=== PATIENT | female | born 1985 | race Caucasian/White ===

== ENCOUNTER → 2017-02-08 | Outpatient (CLI) | payer OTHER ==
[~2017-02-08] MED LIST: ACET500T57 PO; ASPI1TAB PO; ASPI1TAB83 PO; ATOR10TA88 PO; BCTROWC EXT; BUPR100T8 PO; CEPH500C PO; CYCL5TAB PO; DICL50TA3 PO; DICY10CA12 PO; DOXE10CA PO; ESOM20CA PO; ETON1IMP2 INTRAD; FLUO10CA48 PO; FLUO20CA35 PO; FLUO40CA8 PO; GABA-113 PO; GABA600T PO; INDO-22 PO; LEVO50TA PO; METO-157 PO; MIRT15TA2 PO; MIRT45TA3 PO; ONDA4TAB46 PO; ONDA4TAB7 SL; PRAZ2CAP PO; PRT/20 PO; QUET1TAB32 PO; SULF800T23 PO; SUMA20SP; TOPI200T20 PO; TOPI50TA24 PO; TRAM-10 PO; VNTHFA/IN INH
[2017-02-08 14:54] LABS: PREG INTERNAL NEGATIVE QC NEG CLEAR BACKGROUND; PREG INTERNAL POSITIVE QC POS CONTROL LINE
== END | disposition home or self-care (01) ==
LOC: C.LAB1850 13:54
PROVIDERS: ATTEND Physician Assistant
DX: Z30.017 Encounter for initial prescription of implantable subdermal contraceptive (principal)

== ENCOUNTER 2017-03-15 21:38 | Emergency (ER) | payer OTHER ==
[~2017-03-15] VITALS: Ht 154.9 cm; Wt 91.7 kg
[~2017-03-15 21:38] MED LIST changes: -ASPI1TAB PO; -ATOR10TA88 PO; -BCTROWC EXT; -CEPH500C PO; -CYCL5TAB PO; -DICY10CA12 PO; -ETON1IMP2 INTRAD; -FLUO10CA48 PO; -FLUO40CA8 PO; -GABA600T PO; -INDO-22 PO; -LEVO50TA PO; -MIRT45TA3 PO; -ONDA4TAB46 PO; -PRAZ2CAP PO; -PRT/20 PO; -QUET1TAB32 PO; -SULF800T23 PO; -TOPI200T20 PO; -VNTHFA/IN INH
[2017-03-15 21:47] VITALS: TEMP 36.4; Ht 154.9 cm; Wt 91.7 kg
[2017-03-15] MEDS ORDERED: KETOROLAC TROMETHAMINE 30 MG/ML VIAL IV STA (23:39)
[2017-03-15] MEDS ORDERED: ACETAMINOPHEN IV 100 ML IV ONE (23:45)
[2017-03-15] MEDS ORDERED: SODIUM CHLORIDE 0.9% 1000ML 1,000 ML IV ONE (23:45)
[2017-03-15 23:58] LABS: HEMATOCRIT 38.1 % (37-47); MEAN CELL VOLUME 92.7 fL (80-100); MEAN CORPUSCULAR HEMOGLOBIN 32.1 pg (25-34); MEAN CORPUSCULAR HGB CONC 34.6 g/dl (32-36); MEAN PLATELET VOLUME 8.9 fL (7.4-10.4); PLATELET COUNT 286 K/uL (130-400); RED BLOOD COUNT 4.11 M/uL (4.2-5.4); WHITE BLOOD COUNT 12.14 K/uL (4.8-10.8)
[2017-03-16 00:16] LABS: BASO % 0.2 %; BASO ABS # 0.03 K/uL (0-0.2); COMPLETE YES; EOS % 1.3 %; IG% 0.4 %; LYMPH % 29.5 %; LYMPH ABS # 3.58 K/uL (1.2-3.4); MONO % 6.7 %; NEUT % 61.9 %
[2017-03-16 00:23] LABS: BUN/CREATININE RATIO 14.8 (10-20); CALCIUM 8.8 mg/dl (8.5-10.1); CREATININE 0.78 mg/dl (0.60-1.20); POTASSIUM 3.3 mmol/L (3.5-5.1)
[2017-03-16 00:26] LABS: ALB/GLOB RATIO 0.9 (0.9-2)
[2017-03-16] MEDS ORDERED: PRAZ2CAP PO (00:26)
[2017-03-16 00:27] LABS: URINE APPEARANCE CLEAR (CLEAR); URINE BILIRUBIN NEG (NEG); URINE COLOR RED; URINE NITRITE NEG (NEG); URINE SPECIFIC GRAVITY 1.004 (1.000-1.030); UROBILINOGEN NEG (NEG); ZZUR CULT IF INDIC CLEAN CATCH NO
[2017-03-16] MEDS ORDERED: VNTHFA/IN INH (00:31)
[2017-03-16 00:36] LABS: MANUAL MICROSCOPIC REQUIRED? YES; REVIEW REQ? NO
[2017-03-16 00:46] LABS: URINE BACTERIA 1+ (NEG)
[2017-03-16] MEDS ORDERED: SULF800T23 PO (01:36)
[2017-03-16 01:44] VITALS: BP 114/69; PULSE 57; O2SAT 97
[2017-03-16] MEDS ORDERED: SEPTRA DS HOME PACK 1 EA VIAL PO ONE (01:45)
--- NOTE | 2017-03-16 01:55 | EMERGENCY ROOM VISIT NOTE ---
History First contact with patient: 23:32 Chief Complaint: ABDOMINAL PAIN Stated Complaint: ABDOMINAL PAIN Nursing Triage Summary: Patient ambulatory to triage, states "I have a lot of belly pain. I don't know what's going on. It's really bothering me. It started in the afternoon while I was at home relaxing." History of Present Illness The patient is a 32 year old female who presents to the Emergency Room with complaints of worsening mid to low abdominal pain over the past 12 hours. The patient does not have injury or trauma. Her symptoms do not appear to improve or worsen with food. They started to become noticeable as the patient was relaxing at home today. She has not had fever or chills. She is not taking anything [id number] for her symptoms. The patient has Implanon and denies chance of . She does not get a menstrual. Because of this. She is without vaginal complaints. The patient states her discomfort is a dull 5/10 without radiation. Review of Systems More than 10 systems were reviewed and otherwise negative with the exception of history of present illness. Past Medical/Surgical History Medical Problems: (1) Carpal tunnel syndrome (2) Chest pain (3) Chest pain (4) Chest pain (5) Chest pain (6) Diab Vilma Wo Compl, Type Ii Or Unspec Type, Not Uncntrld (7) Hypothyroidism (8) Migraine Unspecified W/O Intractable Migraine Family History Diabetes mellitus Social History Smoking Status: Never Smoker Alcohol Use: none Marital Status: single Housing Status: lives with family Occupation Status: employed Current/Historical Medications Scheduled Aspirin (Aspirin), 1 TAB PO DAILY Atorvastatin (Lipitor), 10 MG PO DAILY Bupropion (Wellbutrin Sr), 100 MG PO BID Doxepin (Sinequan), 10 MG PO DAILY Etonogestrel (Nexplanon), 68 MG EPI CONTINOUS Fluoxetine (Prozac), 40 MG PO DAILY Gabapentin (Neurontin), 600 MG PO TID Indomethacin (Indocin), 25 MG PO DAILY Levothyroxine Sodium (Synthroid), 50 MCG PO DAILY Metoclopramide (Reglan), 5 MG PO TID Mirtazapine Soltab (Remeron Soltab), 15 MG PO HS Pantoprazole (Protonix), 20 MG PO QAM Prazosin Hcl (Minipress), 2 MG PO HS Sulfa/Trimethoprim (Bactrim Ds 800MG/160MG), 1 TAB PO BID Topiramate (Topamax), 200 MG PO AMHS Scheduled PRN Acetaminophen (Acetaminophen), 1,000 MG PO Q6H PRN for Pain Albuterol Hfa (Ventolin Hfa), 2 PUFFS INH Q6H PRN for SOB/Wheezing Cyclobenzaprine Hcl (Flexeril), 5 MG PO TID PRN for SPASMS Dicyclomine Hcl (Dicyclomine Hcl), 10 MG PO QID PRN for CRAMPING Ondansetron Hcl (Zofran), 4 MG SL Q6H PRN for Nausea Tramadol (Ultram), 50 MG PO Q6H PRN for Pain Allergies Coded Allergies: Morphine (Verified Adverse Reaction, Unknown, dizzy and feels like fainting, 03/15/17) Physical Exam Vital Signs Date Time Temp Pulse Resp B/P Pulse Ox O2 Delivery O2 Flow Rate FiO2 03/16/17 01:44 57 18 114/69 97 03/15/17 23:56 67 18 114/88 99 Room Air 03/15/17 21:47 36.4 75 18 137/94 97 Room Air Pain Rating (0-10): 0 Physical Exam VITALS: Vitals are noted on the nurse's note and reviewed by myself. Vital signs stable. GENERAL: Well-developed, well-nourished, white female, who is in no acute distress and resting comfortably. Patient is cooperative with the examination. HEAD: Normocephalic atraumatic. EARS: External ear normal. External auditory canals clear, tympanic membranes pearly berry without erythema or effusion bilaterally. EYES: Pupils equal round and reactive to light and accommodation. Conjunctivae without injection, sclerae without icterus. Extraocular movements intact. NOSE: Patent, turbinates without inflammation or discharge. MOUTH: Mucous membranes moist. Tonsils are not enlarged. Pharynx without erythema, blood, or exudate. Uvula midline. Airway patent. NECK: Supple without nuchal rigidity. No lymphadenopathy. No thyromegaly. Cervical spine is nontender. HEART: Regular rate and rhythm without murmurs gallops or rubs. LUNGS: Clear to auscultation bilaterally without wheezes, rales or rhonchi. No retractions or accessory muscle use. ABDOMEN: Positive normal bowel sounds x 4. Soft, nontender, without masses or organomegaly. No guarding or rebound tenderness. No CVA tenderness MUSCULOSKELETAL: No muscle atrophy, erythema, or edema noted. Full range of motion without joint tenderness in all extremities. Medical Decision & Procedures ER Provider Diagnostic Interpretation: Preliminary Findings Only See Final Report For Complete Findings CT ABDOMEN & PELVIS: Comparison with CT abdomen pelvis dated 04/19/14. No bowel obstruction. No appendicitis or other inflammatory changes of bowel. Pancreas and gallbladder are grossly unremarkable. No renal calculi. No hydronephrosis. No free air or free fluid. No other acute disease. Laboratory Results 03/15/17 23:45 Red Blood Count 4.11, Mean Corpuscular Volume 92.7, Mean Corpuscular Hemoglobin 32.1, Mean Corpuscular Hemoglobin Concent 34.6, Mean Platelet Volume 8.9, Neutrophils (%) (Auto) 61.9, Lymphocytes (%) (Auto) 29.5, Monocytes (%) (Auto) 6.7, Eosinophils (%) (Auto) 1.3, Basophils (%) (Auto) 0.2, Neutrophils # (Auto) 7.51, Lymphocytes # (Auto) 3.58, Monocytes # (Auto) 0.81, Eosinophils # (Auto) 0.16, Basophils # (Auto) 0.03 03/15/17 23:45 Test 03/15/17 23:40 03/15/17 23:45 Urine Color RED Urine Appearance CLEAR (CLEAR) Urine pH 7.0 (4.5-7.5) Urine Specific [place] 1.004 (1.000-1.030) Urine Protein NEG (NEG) Urine Glucose (UA) NEG (NEG) Urine Ketones NEG (NEG) Urine Occult Blood 3+ (NEG) Urine Nitrite NEG (NEG) Urine Bilirubin NEG (NEG) Urine Urobilinogen NEG (NEG) Urine Leukocyte Esterase SMALL (NEG) Urine WBC (Auto) /hpf (0-5) Urine RBC (Auto) /hpf (0-4) Urine Hyaline Casts (Auto) /lpf (0-5) Urine Epithelial Cells (Auto) /lpf (0-5) Urine Bacteria (Auto) (NEG) Urine RBC 5-10 /hpf (0-4) Urine WBC 10-30 /hpf (0-5) Urine Epithelial Cells 10-20 /lpf (0-5) Urine Bacteria 1+ (NEG) Urine Test NEG (NEG) White Blood Count 12.14 K/uL (4.8-10.8) Red Blood Count 4.11 M/uL (4.2-5.4) Hemoglobin 13.2 g/dL (12.0-16.0) Hematocrit 38.1 % (37-47) Mean Corpuscular Volume 92.7 fL (80-100) Mean Corpuscular Hemoglobin 32.1 pg (25-34) Mean Corpuscular Hemoglobin Concent 34.6 g/dl (32-36) Platelet Count 286 K/uL (130-400) Mean Platelet Volume 8.9 fL (7.4-10.4) Neutrophils (%) (Auto) 61.9 % Lymphocytes (%) (Auto) 29.5 % Monocytes (%) (Auto) 6.7 % Eosinophils (%) (Auto) 1.3 % Basophils (%) (Auto) 0.2 % Neutrophils # (Auto) 7.51 K/uL (1.4-6.5) Lymphocytes # (Auto) 3.58 K/uL (1.2-3.4) Monocytes # (Auto) 0.81 K/uL (0.11-0.59) Eosinophils # (Auto) 0.16 K/uL (0-0.5) Basophils # (Auto) 0.03 K/uL (0-0.2) RDW Standard Deviation 43.6 fL (36.4-46.3) RDW Coefficient of Variation 12.9 % (11.5-14.5) Immature Granulocyte % (Auto) 0.4 % Immature Granulocyte # (Auto) 0.05 K/uL (0.00-0.02) Anion Gap 9.0 mmol/L (3-11) Est Creatinine Clear Calc Drug Dose 105.8 ml/min Estimated GFR () 115.8 Estimated GFR (Non- 99.9 BUN/Creatinine Ratio 14.8 (10-20) Calcium Level 8.8 mg/dl (8.5-10.1) Total Bilirubin 0.2 mg/dl (0.2-1) Aspartate Amino Transf (AST/SGOT) 8 U/L (15-37) Alanine Aminotransferase (ALT/SGPT) 20 U/L (12-78) Alkaline Phosphatase 112 U/L (45-117) Total Protein 7.5 gm/dl (6.4-8.2) Albumin 3.6 gm/dl (3.4-5.0) Globulin 3.9 gm/dl (2.5-4.0) Albumin/Globulin Ratio 0.9 (0.9-2) Lipase 104 U/L (73-393) Medications Administered Medications (Trade) Dose Ordered Sig/Nayla Route Start Time Stop Time Status Last Admin Dose Admin Sodium Chloride (Nss 1000ml) 1,000 ml @ 999 mls/hr Q1H1M ONCE IV 03/15/17 23:45 03/16/17 00:45 DC 03/15/17 23:54 999 MLS/HR Ketorolac Tromethamine 30 mg 30 mg NOW STAT IV 03/15/17 23:39 03/15/17 23:42 DC 03/15/17 23:54 30 MG Acetaminophen (Ofirmev Iv) 100 ml @ 400 mls/hr NOW ONCE IV 03/15/17 23:45 03/15/17 23:59 DC 03/15/17 23:54 400 MLS/HR Trimethoprim/ Sulfamethoxazole (Sulfameth/ Trimeth Ds 800/ 160MG Home Pack) 1 homepack UD ONCE PO 03/16/17 01:45 03/16/17 01:46 DC 03/16/17 01:41 1 HOMEPACK ED Course Physical exam and history were performed. Nursing notes and EMR were reviewed. Patient appears to have reports of generalized abdominal pain worsening over the past day. On examination she does not have significant tenderness. She was able to provide a urine sample prior to my evaluation, and it is with gross hematuria. IV access was established and labs were obtained. The patient was offered pain medication but requested medication that would not make her drowsy. She was given 30 mg IV Toradol and [address] scan was ordered. The patient is as above and was reviewed. She does have a slightly elevated white blood cell count without significant anemia or gross electrolyte imbalance. Her urine is with blood and signs of infection. CT scan does not show an acute abdominal process such as appendicitis or ureteral calculi. On repeat abdominal examination the patient continued without significant tenderness. I discussed her findings with her at length and clinically she appears to have a hemorrhagic cystitis. The patient will be started on Bactrim and given a continuation course of the medication. The patient was asked to follow with her primary care physician for further care and management. She was advised to ER with any new, worsening, or concerning symptoms. The chart was completed utilizing [employer] Speech Voice Recognition Software. Grammatical errors, random word insertions, pronoun errors, and incomplete sentences are an occasional consequence of this system due to software limitations, ambient noise, and hardware issues. Any formal questions or concerns about the content, text, or information contained within the body of this dictation should be directly addressed to the provider for clarification. . Medical Decision Differential diagnosis: Etiologies such as appendicitis, diverticulitis, PUD, biliary pathology, UTI, pancreatitis, obstruction, mesenteric ischemia, aortic pathology, infections, inflammatory bowel disease, renal colic, as well as others were entertained. Impression Primary Impression: Urinary tract infection Additional Impression: Hematuria Departure Information Dispostion Home / Self-Care Condition GOOD Prescriptions Sulfa/Trimethoprim (Bactrim Ds 800MG/160MG) Tab 1 TAB PO BID for 7 Days, #14 TAB Prov: Bhargav Edwards PA-C 03/16/17 Forms Call Back Authorization, HOME CARE DOCUMENTATION FORM, IMPORTANT VISIT INFORMATION Patient Instructions My [facility] Additional Instructions You were seen and evaluated today on an emergency basis only. This is not a substitute for, or an effort to provide, complete comprehensive medical care. It is not possible to recognize and treat all injuries or illnesses in a single emergency department visit. For this reason it is recommended that you followup with your primary care physician this week for ongoing care and evaluation. Drink plenty fluids and remain well hydrated. Trimethoprim-Sulfamethoxazole(Bactrim DS): Take one pill twice daily for 7 days for your infection. All antibiotics can cause diarrhea. If this occurs and you feel worse or it does not resolve in 1-2 days follow up with your doctor or return to the Emergency Department as this could be signs of serious underlying problems. Any medication can cause an allergic reaction, stop the pills immediately and return to the ER for rash, hives, breathing difficulties, or swelling. You are welcome to return to the emergency department anytime with new, worsening, or concerning symptoms. Problem Qualifiers
--- NOTE | 2017-03-16 07:53 | DIAGNOSTIC IMAGING REPORT ---
ABDOMEN AND PELVIS CT WITHOUT CONTRAST CT DOSE: 791.86 mGy.cm HISTORY: Generalized abdominal pain with hematuria. TECHNIQUE: Multiaxial CT images of the abdomen and pelvis were performed without contrast. COMPARISON STUDY: None. FINDINGS: The lung bases are clear. The unenhanced liver, spleen, gallbladder, pancreas, kidneys, and adrenal glands are within normal limits. No bowel wall thickening or obstruction. The pelvic organs are unremarkable. No suspicious lytic or blastic osseous lesions. Normal appendix. No renal stones or hydronephrosis. IMPRESSION: No renal stones or hydronephrosis. No evidence for bowel obstruction. Electronically signed by: Alec Bhagat M.D. 03/16/2017 7:51 AM Dictated Date/Time: 03/16/2017 7:48 AM
[2017-03-21] MEDS ORDERED: ONDA4TAB46 PO (00:13)
[2017-03-21] MEDS ORDERED: DICY10CA12 PO (00:15)
[2017-03-21] MEDS ORDERED: CYCL5TAB PO (00:22)
[2017-03-21] MEDS ORDERED: BUPR100T8 PO (00:23)
[2017-03-21] MEDS ORDERED: ATOR10TA82 PO (00:24)
[2017-03-21] MEDS ORDERED: ETON1IMP2 INTRAD (00:28)
[2017-03-21] MEDS ORDERED: PRT/20 PO (00:29)
[2017-03-21] MEDS ORDERED: LEVO50TA PO (09:24)
[2017-03-21] MEDS ORDERED: INDO-22 PO (15:07)
== END 2017-03-16 01:45 | disposition home or self-care (01) ==
LOC: C.EDB 21:40
DX: N39.0 Urinary tract infection, site not specified (principal); R31.9 Hematuria, unspecified; E11.9 Type 2 diabetes mellitus without complications; E03.9 Hypothyroidism, unspecified; Z79.82 Long term (current) use of aspirin; Z79.899 Other long term (current) drug therapy; Z88.5 Allergy status to narcotic agent; Z83.3 Family history of diabetes mellitus

== ENCOUNTER 2017-03-21 21:21 | Emergency (ER) | payer OTHER ==
[~2017-03-21] VITALS: Ht 154.9 cm; Wt 91.7 kg
[~2017-03-21 21:21] MED LIST changes: +ATOR10TA82 PO; +CYCL5TAB PO; -DICL50TA3 PO; +DICY10CA12 PO; -ESOM20CA PO; +ETON1IMP2 INTRAD; +INDO-22 PO; +LEVO50TA PO; +ONDA4TAB46 PO; -ONDA4TAB7 SL; +PRAZ2CAP PO; +PRT/20 PO; +SULF800T23 PO; -SUMA20SP; +VNTHFA/IN INH
[2017-03-21 21:32] VITALS: TEMP 36.9; Ht 154.9 cm; Wt 91.7 kg
[2017-03-21] MEDS ORDERED: ASPI1TAB PO (22:43)
[2017-03-21] MEDS ORDERED: MIRT45TA3 PO (22:43)
[2017-03-21] MEDS ORDERED: TOPI200T20 PO (22:43)
[2017-03-21] MEDS ORDERED: GABA600T PO (22:43)
[2017-03-21] MEDS ORDERED: ACETAMINOPHEN 500 MG TAB PO STA (22:46)
[2017-03-21] MEDS ORDERED: FLUO10CA48 PO (22:50)
[2017-03-21] MEDS ORDERED: FLUO40CA8 PO (22:50)
--- NOTE | 2017-03-21 22:52 | EMERGENCY ROOM VISIT NOTE ---
History Report prepared by Kevin: Rico Martínez Under the Supervision of: Dr. Jayden Arambula M.D. First contact with patient: 22:38 Chief Complaint: ABDOMINAL PAIN Stated Complaint: STOMACH PAIN Nursing Triage Summary: Ambulates to room. Reports was treated for UTI. Finished course of antibx. Follow up with PCP today. Pt reports she was told there is blood in her urine. Pt here because of abd pain. History of Present Illness The patient is a 32 year old female who presents to the Emergency Room with complaints of persistent abdominal pain that started a week ago. She rates this pain an 8/10. This pain is worse with eating. Associated symptoms include reported hematuria. The patient was evaluated in the ED last week where she was diagnosed with a UTI. She was prescribed Bactrim at this time. The patient states that this medication did not offer any relief of her pain. The patient was evaluated by her PCP earlier today where she states that she was told she did not have a UTI. Patient adds that her PCP mentioned she may be experiencing these symptoms as a side effect of her new control. Patient had a CT scan performed on 03/16 which was negative. She has a scheduled appointment with a assistant property manager in 4 days. Source of History: patient Onset: A week ago Position: abdomen Symptom Intensity: 8/10 Timing: other (Persistent ) Modifying Factors (Worsening): eating Modifying Factors (Relieving): other (None) Associated Symptoms: + urinary symptoms (Hematuria ) Review of Systems All systems have been listed, reviewed, and are negative other than those previously mentioned. Please see Additional Medical History Sheet. Past Medical & Surgical Medical Problems: (1) Carpal tunnel syndrome (2) Chest pain (3) Chest pain (4) Chest pain (5) Chest pain (6) Diab Vilma Wo Compl, Type Ii Or Unspec Type, Not Uncntrld (7) Hypothyroidism (8) Migraine Unspecified W/O Intractable Migraine Family History Diabetes mellitus Social History Smoking Status: Never Smoker Alcohol Use: none Marital Status: single Housing Status: lives with family Occupation Status: unemployed Current/Historical Medications Scheduled Aspirin-Calcium Carbonate (Nasim Womens), 81 MG PO DAILY Atorvastatin (Lipitor), 10 MG PO DAILY Bupropion (Wellbutrin Sr), 100 MG PO BID Etonogestrel (Nexplanon), 68 MG INTRAD UD Fluoxetine (Prozac), 10 MG PO DAILY Fluoxetine (Prozac), 40 MG PO DAILY Gabapentin (Neurontin), 600 MG PO TID Levothyroxine Sodium (Synthroid), 50 MCG PO DAILY Mirtazapine (Mirtazapine), 45 MG PO HS Pantoprazole (Protonix), 20 MG PO QAM Topiramate (Topamax), 200 MG PO BID Scheduled PRN Cyclobenzaprine Hcl (Flexeril), 5 MG PO TID PRN for Muscle spasm Dicyclomine Hcl (Dicyclomine Hcl), 10 MG PO QID PRN for Cramping Indomethacin (Indocin), 25-50 MG PO TID PRN for Headache Ondansetron Hcl (Zofran), 4 MG PO Q6H PRN for Nausea Allergies Coded Allergies: Morphine (Verified Adverse Reaction, Unknown, dizzy and feels like fainting, 03/15/17) Physical Exam Vital Signs Date Time Temp Pulse Resp B/P Pulse Ox O2 Delivery O2 Flow Rate FiO2 03/22/17 00:44 73 18 112/71 98 Room Air 03/21/17 23:26 82 18 114/68 96 Room Air 03/21/17 21:32 36.9 87 18 113/75 97 Room Air Physical Exam GENERAL: Patient awake, alert, oriented x 3. Patient follows commands. Patient does not appear toxic. Patient is adequately hydrated and well- nourished. SKIN: No erythema, pallor, cyanosis or rash HEENT: Normal head, pupils equal, reactive to light and accommodation. LUNGS: Clear to auscultation. No wheezes, no rales, no rhonchi. HEART: No murmurs. No gallops. No rubs ABDOMEN: Vague tenderness in right and left lower quadrants. No rebound or guarding. EXTREMITIES: No signs of trauma or infection. NEUROLOGIC: Cranial nerves II-XII within normal limits. No gross motor sensory function deficits. Medical Decision & Procedures Laboratory Results 03/21/17 22:55 Red Blood Count 4.34, Mean Corpuscular Volume 93.5, Mean Corpuscular Hemoglobin 32.0, Mean Corpuscular Hemoglobin Concent 34.2, Mean Platelet Volume 9.5, Neutrophils (%) (Auto) 60.1, Lymphocytes (%) (Auto) 30.4, Monocytes (%) (Auto) 7.6, Eosinophils (%) (Auto) 1.2, Basophils (%) (Auto) 0.4, Neutrophils # (Auto) 7.17, Lymphocytes # (Auto) 3.62, Monocytes # (Auto) 0.90, Eosinophils # (Auto) 0.14, Basophils # (Auto) 0.05 03/21/17 22:55 Test 03/21/17 22:55 03/21/17 22:58 White Blood Count 11.92 K/uL (4.8-10.8) Red Blood Count 4.34 M/uL (4.2-5.4) Hemoglobin 13.9 g/dL (12.0-16.0) Hematocrit 40.6 % (37-47) Mean Corpuscular Volume 93.5 fL (80-100) Mean Corpuscular Hemoglobin 32.0 pg (25-34) Mean Corpuscular Hemoglobin Concent 34.2 g/dl (32-36) Platelet Count 314 K/uL (130-400) Mean Platelet Volume 9.5 fL (7.4-10.4) Neutrophils (%) (Auto) 60.1 % Lymphocytes (%) (Auto) 30.4 % Monocytes (%) (Auto) 7.6 % Eosinophils (%) (Auto) 1.2 % Basophils (%) (Auto) 0.4 % Neutrophils # (Auto) 7.17 K/uL (1.4-6.5) Lymphocytes # (Auto) 3.62 K/uL (1.2-3.4) Monocytes # (Auto) 0.90 K/uL (0.11-0.59) Eosinophils # (Auto) 0.14 K/uL (0-0.5) Basophils # (Auto) 0.05 K/uL (0-0.2) RDW Standard Deviation 44.5 fL (36.4-46.3) RDW Coefficient of Variation 12.9 % (11.5-14.5) Immature Granulocyte % (Auto) 0.3 % Immature Granulocyte # (Auto) 0.04 K/uL (0.00-0.02) Anion Gap 9.0 mmol/L (3-11) Est Creatinine Clear Calc Drug Dose 108.6 ml/min Estimated GFR () 119.5 Estimated GFR (Non- 103.1 BUN/Creatinine Ratio 17.4 (10-20) Calcium Level 9.2 mg/dl (8.5-10.1) Chemistry Specimen Hemolysis Urine Color YELLOW Urine Appearance CLOUDY (CLEAR) Urine pH 6.5 (4.5-7.5) Urine Specific [place] 1.026 (1.000-1.030) Urine Protein NEG (NEG) Urine Glucose (UA) NEG (NEG) Urine Ketones NEG (NEG) Urine Occult Blood NEG (NEG) Urine Nitrite NEG (NEG) Urine Bilirubin NEG (NEG) Urine Urobilinogen NEG (NEG) Urine Leukocyte Esterase NEG (NEG) Urine WBC (Auto) 1-5 /hpf (0-5) Urine RBC (Auto) 0-4 /hpf (0-4) Urine Hyaline Casts (Auto) 1-5 /lpf (0-5) Urine Epithelial Cells (Auto) >30 /lpf (0-5) Urine Bacteria (Auto) NEG (NEG) Urine Test NEG (NEG) Laboratory results as stated above per my review. Medications Administered Medications (Trade) Dose Ordered Sig/Nayla Route Start Time Stop Time Status Last Admin Dose Admin Acetaminophen (Tylenol Tab) 1,000 mg NOW STAT PO 03/21/17 22:46 03/21/17 22:48 DC 03/21/17 23:26 1,000 MG ED Course 224: Past medical records reviewed. The patient was evaluated in room B11. A complete history and physical examination was performed. 2246: Ordered Tylenol Tablet 1,000 mg PO. 0040: Upon reevaluation, the patient appeared to have improvement of her symptoms. I discussed today's findings with the patient. She verbalized agreement of the treatment plan. The patient was discharged home. Medical Decision Nurses notes reviewed. Medical history sheet reviewed. Differential diagnosis includes but is not limited to: UTI, ovarian cyst/torsion, ulcerative colitis, bowel obstruction. Multiple labs and urinalysis were obtained. Please see above. The patient does not appear to have a urinary tract infection. There is some concern that the pain may be related to her Nexplanon. The patient does not have an acute abdomen. She got almost complete relief with Tylenol. The patient has a scheduled gynecology appointment in 4 days. The patient will continue to take Tylenol as needed for pain. I do not think she requires any further antibiotics. Impression Primary Impression: Lower abdominal pain of unknown etiology Scribe Attestation The scribe's documentation has been prepared under my direction and personally reviewed by me in its entirety. I confirm that the note above accurately reflects all work, treatment, procedures, and medical decision making performed by me. Departure Information Dispostion Home / Self-Care Referrals No Doctor, Assigned (PCP) Forms Call Back Authorization, HOME CARE DOCUMENTATION FORM, IMPORTANT VISIT INFORMATION Patient Instructions My [facility] Additional Instructions 1000 mg of Tylenol every 4-6 hours as needed for abdominal pain. Follow-up with your gynecology appointment on Saturday.
[2017-03-21 23:20] LABS: BASO % 0.4 %; BASO ABS # 0.05 K/uL (0-0.2); COMPLETE YES; EOS % 1.2 %; HEMATOCRIT 40.6 % (37-47); IG% 0.3 %; LYMPH % 30.4 %; LYMPH ABS # 3.62 K/uL (1.2-3.4); MEAN CELL VOLUME 93.5 fL (80-100); MEAN CORPUSCULAR HGB CONC 34.2 g/dl (32-36); MEAN PLATELET VOLUME 9.5 fL (7.4-10.4); MONO % 7.6 %; NEUT % 60.1 %; PLATELET COUNT 314 K/uL (130-400); RED BLOOD COUNT 4.34 M/uL (4.2-5.4); WHITE BLOOD COUNT 11.92 K/uL (4.8-10.8)
[2017-03-21 23:25] LABS: URINE APPEARANCE CLOUDY (CLEAR); URINE BILIRUBIN NEG (NEG); URINE COLOR YELLOW; URINE EPITHELIAL CELL AUTO >30 /lpf (0-5); URINE NITRITE NEG (NEG); URINE PH 6.5 (4.5-7.5); URINE SPECIFIC GRAVITY 1.026 (1.000-1.030); UROBILINOGEN NEG (NEG); ZZURINE CULT IF INDIC CATH NO
[2017-03-21 23:31] LABS: MANUAL MICROSCOPIC REQUIRED? NO; REVIEW REQ? NO
[2017-03-22 00:02] LABS: BUN/CREATININE RATIO 17.4 (10-20); CALCIUM 9.2 mg/dl (8.5-10.1); CREATININE 0.76 mg/dl (0.60-1.20); POTASSIUM 3.8 mmol/L (3.5-5.1)
[2017-03-22 00:44] VITALS: BP 112/71; PULSE 73; O2SAT 98
== END 2017-03-22 00:46 | disposition home or self-care (01) ==
LOC: C.EDB 21:21
DX: R10.9 Unspecified abdominal pain (principal); E11.9 Type 2 diabetes mellitus without complications; E03.9 Hypothyroidism, unspecified; Z87.440 Personal history of urinary (tract) infections; Z79.82 Long term (current) use of aspirin; Z79.899 Other long term (current) drug therapy; Z88.5 Allergy status to narcotic agent; Z83.3 Family history of diabetes mellitus

== ENCOUNTER 2017-04-23 15:33 | Emergency (ER) | payer OTHER ==
[~2017-04-23] VITALS: Ht 154.9 cm; Wt 94.3 kg
[~2017-04-23 15:33] MED LIST changes: -ACET500T57 PO; +ASPI1TAB PO; -ASPI1TAB83 PO; -DOXE10CA PO; +FLUO10CA48 PO; -FLUO20CA35 PO; +FLUO40CA8 PO; -GABA-113 PO; +GABA600T PO; -METO-157 PO; -MIRT15TA2 PO; +MIRT45TA3 PO; -PRAZ2CAP PO; -SULF800T23 PO; +TOPI200T20 PO; -TOPI50TA24 PO; -TRAM-10 PO; -VNTHFA/IN INH
[2017-04-23 15:37] VITALS: TEMP 36.8; Ht 154.9 cm; Wt 94.3 kg
[2017-04-23] MEDS ORDERED: QUET1TAB32 PO (15:47)
[2017-04-23] MEDS ORDERED: CEPH500C PO (16:12)
[2017-04-23] MEDS ORDERED: BCTROWC EXT (16:12)
--- NOTE | 2017-04-23 16:13 | EMERGENCY ROOM VISIT NOTE ---
History First contact with patient: 15:52 Chief Complaint: OTHER COMPLAINT Stated Complaint: SORES ON SIDES OF TORSO History of Present Illness The patient is a 32 year old female who presents to the Emergency Room with complaints of a rash on her abdomen. The patient states that there are multiple red spots on her abdomen which have been there for 2 days. She initially thought they were pimples but states they are becoming more painful. She rates her discomfort an 8/10. She states they're located on her right and left abdomen and torso. She denies any recent bug bites, new environmental exposures or new medications. Review of Systems A complete 10 point review of systems was reviewed with the patient with pertinent positives and negatives as per history of present illness. All else were negative. Past Medical/Surgical History Medical Problems: (1) Carpal tunnel syndrome (2) Chest pain (3) Chest pain (4) Chest pain (5) Chest pain (6) Diab Vilma Wo Compl, Type Ii Or Unspec Type, Not Uncntrld (7) Hypothyroidism (8) Migraine Unspecified W/O Intractable Migraine Family History Diabetes mellitus Social History Smoking Status: Never Smoker Alcohol Use: none Marital Status: single Housing Status: lives with family Occupation Status: unemployed Current/Historical Medications Scheduled Aspirin-Calcium Carbonate (Nasim Womens), 81 MG PO DAILY Atorvastatin (Lipitor), 10 MG PO DAILY Bupropion (Wellbutrin Sr), 100 MG PO BID Cephalexin Monohydrate (Keflex), 500 MG PO QID Fluoxetine (Prozac), 10 MG PO DAILY Fluoxetine (Prozac), 40 MG PO DAILY Gabapentin (Neurontin), 600 MG PO TID Levothyroxine Sodium (Synthroid), 50 MCG PO DAILY Mirtazapine (Mirtazapine), 45 MG PO HS Mupirocin (Bactroban 2% Oint), 1 APPLN EXT BID Pantoprazole (Protonix), 20 MG PO QAM Quetiapine Fumarate (Seroquel), 50 MG PO DIRECTED Topiramate (Topamax), 200 MG PO BID Scheduled PRN Cyclobenzaprine Hcl (Flexeril), 5 MG PO TID PRN for Muscle spasm Dicyclomine Hcl (Dicyclomine Hcl), 10 MG PO QID PRN for Cramping Indomethacin (Indocin), 25-50 MG PO TID PRN for Headache Ondansetron Hcl (Zofran), 4 MG PO Q6H PRN for Nausea Allergies Coded Allergies: Morphine (Verified Adverse Reaction, Unknown, dizzy and feels like fainting, 04/23/17) Physical Exam Vital Signs Date Time Temp Pulse Resp B/P (MAP) Pulse Ox O2 Delivery O2 Flow Rate FiO2 04/23/17 16:21 86 20 117/77 100 Room Air 04/23/17 15:37 36.8 76 16 129/93 100 Room Air Physical Exam VITALS: Vitals are noted on the nurse's note and reviewed by myself. Vital signs stable. GENERAL: This is a 32-year-old female, in no acute distress, nondiaphoretic, well-developed well-nourished. SKIN: There are 3 erythematous papules with mild surrounding erythema over the abdomen. HEART: Regular rate and rhythm without murmurs gallops or rubs. LUNGS: Clear to auscultation bilaterally without wheezes, rales or rhonchi. NEURO: Patient was alert and oriented to person place and time. Medical Decision & Procedures Medical Decision Differential diagnosis includes cellulitis, folliculitis, allergic reaction, erythema migrans, among others. The patient was evaluated as above. She presents for evaluation of a rash. The patient does have multiple papules which appear to be insect bites. There is a mild cellulitis surrounding a few of these papules. The patient will be placed on Keflex and Bactroban. She was instructed to follow-up with her primary care provider for a recheck. She verbalized understanding of my assessment and treatment plan and was discharged home in good condition. Impression Primary Impression: Cellulitis of trunk Departure Information Dispostion Home / Self-Care Condition GOOD Prescriptions Mupirocin (Bactroban 2% Oint) 66 Appln/22 Gm Oint 1 APPLN EXT BID for 7 Days, #1 TUBE Prov: Coni Wright PA-C 04/23/17 Cephalexin Monohydrate (Keflex) 500 Mg Cap 500 MG PO QID for 7 Days, #28 CAP Prov: Coni Wright PA-C 04/23/17 Referrals Lan Braxton M.D. (PCP) Patient Instructions My [facility] Additional Instructions You were prescribed Keflex to be taken 4 times daily as prescribed. This is an antibiotic. All antibiotics have the potential to cause diarrhea. Stop this medication and contact a medical provider if you were to develop any significant adverse side effects including: wheezing, shortness of breath, passing out, vomiting, or a diffuse rash. Always take antibiotics as directed and COMPLETE the ENTIRE course regardless of the improvement of your symptoms. Apply the Bactroban ointment twice daily to the wounds. For pain control, you can use the following [id number] medicines (if >12 yo): - Regular strength (325mg/tab) Tylenol (acetaminophen) 2 tabs every 4-6 hours as needed. Do not exceed 12 tablets in a 24 hour period. Avoid taking more than 4 grams (4000 mg) of Tylenol per day. This includes any other sources of acetaminophen you may take on a regular basis. - Regular strength (200 mg/tab) Advil (ibuprofen) 1-2 tabs every 4-6 hours as needed. Do not exceed a dose of 3200 mg per day. You should be rechecked by your primary care provider in 2-3 days. Return to the emergency department with worsening symptoms, fevers, or any other new/concerning symptoms. Problem Qualifiers Primary Impression: Cellulitis of trunk Site of cellulitis of trunk: abdominal wall Qualified Codes: L03.311 - Cellulitis of abdominal wall
[2017-04-23 16:21] VITALS: BP 117/77; PULSE 86; O2SAT 100
== END 2017-04-23 16:19 | disposition home or self-care (01) ==
LOC: C.EDB 15:34 → C.EDD 16:19
DX: L03.311 Cellulitis of abdominal wall (principal); R21 Rash and other nonspecific skin eruption; E11.9 Type 2 diabetes mellitus without complications; E03.9 Hypothyroidism, unspecified; Z79.899 Other long term (current) drug therapy

== ENCOUNTER 2017-07-09 17:35 | Emergency (ER) | payer OTHER ==
[~2017-07-09] VITALS: Ht 154.9 cm; Wt 90.5 kg
[~2017-07-09 17:35] MED LIST changes: -ATOR10TA82 PO; +ATOR10TA88 PO; -ETON1IMP2 INTRAD; +QUET1TAB32 PO
[2017-07-09 17:53] VITALS: TEMP 36.3; Ht 154.9 cm; Wt 90.5 kg
[2017-07-09] MEDS ORDERED: KETOROLAC TROMETHAMINE 30 MG/ML VIAL IV STA (18:43)
[2017-07-09] MEDS ORDERED: MAGNESIUM SULFATE 1GM / D5W 1 GM BAG IV STA (18:43)
[2017-07-09] MEDS ORDERED: DiphenhydrAMINE HCL 50 MG/ML VIAL IV STA (18:43)
[2017-07-09] MEDS ORDERED: SODIUM CHLORIDE 0.9% 1000ML 1,000 ML IV STA (18:43)
[2017-07-09] MEDS ORDERED: PROCHLORPERAZINE 5 MG/ML 2 ML VIAL IV STA (18:43)
--- NOTE | 2017-07-09 19:38 | EMERGENCY ROOM VISIT NOTE ---
History Report prepared by Kevin: Kinjal Quick Under the Supervision of: Dr. Monster Funes M.D. First contact with patient: 18:28 Chief Complaint: HEADACHE Stated Complaint: HEADACHE,UPSET STOMACH History of Present Illness The patient is a 32 year old female who presents to the Emergency Room with complaints of a sudden headache starting today. The patient states that she has had migraines in the past, but never one this bad. She currently rates her pain as a 10/10 in severity. She describes the pain as "her head exploding." She reports that her migraines usually come on gradually. She states that she did not take anything for her pain today. The patient complains of nausea, vomiting , and a runny nose. The patient states that the runny nose started with the vomiting. The patient denies neck pain. Source of History: patient Onset: today Position: head Symptom Intensity: 10/10 Quality: other (exploding) Timing: other (sudden) Associated Symptoms: + nausea, + vomiting, No neck pain Note: The patient complains of a runny nose. Review of Systems See HPI for pertinent positives & negatives. A total of 10 systems reviewed and were otherwise negative. Past Medical & Surgical Medical Problems: (1) Carpal tunnel syndrome (2) Chest pain (3) Chest pain (4) Chest pain (5) Chest pain (6) Diab Vilma Wo Compl, Type Ii Or Unspec Type, Not Uncntrld (7) Hypothyroidism (8) Migraine Unspecified W/O Intractable Migraine Family History Diabetes mellitus Social History Smoking Status: Never Smoker Alcohol Use: none Marital Status: single Housing Status: lives with family Occupation Status: unemployed Current/Historical Medications Scheduled Aspirin-Calcium Carbonate (Nasim Womens), 81 MG PO DAILY Atorvastatin (Lipitor), 10 MG PO DAILY Bupropion (Wellbutrin Sr), 100 MG PO BID Fluoxetine (Prozac), 10 MG PO DAILY Fluoxetine (Prozac), 40 MG PO DAILY Gabapentin (Neurontin), 600 MG PO TID Levothyroxine Sodium (Synthroid), 50 MCG PO DAILY Mirtazapine (Mirtazapine), 45 MG PO HS Pantoprazole (Protonix), 20 MG PO QAM Quetiapine Fumarate (Seroquel), 50 MG PO DIRECTED Sulfa/Trimethoprim (Bactrim Ds 800MG/160MG), 1 TAB PO BID Topiramate (Topamax), 200 MG PO BID Scheduled PRN Cyclobenzaprine Hcl (Flexeril), 5 MG PO TID PRN for Muscle spasm Dicyclomine Hcl (Dicyclomine Hcl), 10 MG PO QID PRN for Cramping Indomethacin (Indocin), 25-50 MG PO TID PRN for Headache Allergies Coded Allergies: Morphine (Verified Adverse Reaction, Unknown, dizzy and feels like fainting, 07/09/17) Physical Exam Vital Signs Date Time Temp Pulse Resp B/P (MAP) Pulse Ox O2 Delivery O2 Flow Rate FiO2 07/09/17 21:57 59 15 113/82 98 07/09/17 21:50 57 14 97 07/09/17 21:35 65 16 97 07/09/17 21:30 104/76 07/09/17 21:21 64 16 97 07/09/17 21:06 59 16 97 07/09/17 21:05 110/73 07/09/17 20:06 60 19 100 07/09/17 20:01 124/90 07/09/17 20:00 59 16 99 07/09/17 19:45 70 20 100 07/09/17 19:30 67 19 100 07/09/17 19:15 70 21 99 07/09/17 19:09 72 07/09/17 19:04 128/80 07/09/17 17:53 36.3 67 17 134/89 95 Room Air Physical Exam GENERAL: Patient is a healthy-appearing well-nourished HEAD: Normocephalic atraumatic EYES: Ocular movements intact pupils equal and react to light OROPHARYNX mucous membranes are moist no exudates present no erythema or edema present NECK: Supple no nuchal rigidity. No evidence of meningitis or encephalitis on exam. CHEST: Good equal expansion LUNGS: Clear and equal to auscultation CARDIAC: Normal S1 and S2 ABDOMEN: Soft nontender no guarding BACK: No CVA tenderness EXTREMITIES: No pain upon palpation normal muscle strength in all groups no clubbing cyanosis or edema NEURO: Patient is following commands and answering questions appropriately. Alert and oriented x3 Cranial Nerves 2-12 grossly intact Medical Decision & Procedures ER Provider Diagnostic Interpretation: Radiology results as stated below per my review and radiologist interpretation: CT OF THE HEAD WITHOUT CONTRAST CLINICAL HISTORY: Headache. COMPARISON STUDY: Head CT January 21, 2015 and MRI of the brain September 17, 2013. CT DOSE: 537.48 mGy.cm TECHNIQUE: Helical axial images of the head were obtained without IV contrast. Automated exposure control was utilized for the study. A dose lowering technique was utilized adhering to the principles of ALARA. FINDINGS: No acute intracranial hemorrhage, midline shift or mass effect is present. Brain volume is normal. Ventricular system is normal. Basilar cisterns are patent. There are no extra-axial collections. Rajan-white differentiation is maintained. There are no findings to suggest acute dural sinus thrombosis or acute territorial infarct. The appearance of the brain is unchanged. Visualized portions of the sinuses and the mastoid air cells are clear. There are no significant calvarial abnormalities. IMPRESSION: No acute intracranial findings. Electronically signed by: Anthony Blackwood M.D. 07/09/2017 8:47 PM Dictated Date/Time: 07/09/2017 8:46 PM Laboratory Results 07/09/17 19:20 Red Blood Count 4.16, Mean Corpuscular Volume 90.9, Mean Corpuscular Hemoglobin 32.2, Mean Corpuscular Hemoglobin Concent 35.4, Mean Platelet Volume 9.5 07/09/17 19:20 Test 07/09/17 19:05 07/09/17 19:20 Urine Color YELLOW Urine Appearance CLOUDY (CLEAR) Urine pH 8.0 (4.5-7.5) Urine Specific [place] 1.023 (1.000-1.030) Urine Protein NEG (NEG) Urine Glucose (UA) NEG (NEG) Urine Ketones NEG (NEG) Urine Occult Blood TRACE (NEG) Urine Nitrite NEG (NEG) Urine Bilirubin NEG (NEG) Urine Urobilinogen NEG (NEG) Urine Leukocyte Esterase SMALL (NEG) Urine WBC (Auto) 10-30 /hpf (0-5) Urine RBC (Auto) 0-4 /hpf (0-4) Urine Hyaline Casts (Auto) 1-5 /lpf (0-5) Urine Epithelial Cells (Auto) >30 /lpf (0-5) Urine Bacteria (Auto) 4+ (NEG) Urine Pathogenic Casts /lpf (0) Urine Mucus PRESENT (NONE PRSENT) White Blood Count 12.76 K/uL (4.8-10.8) Red Blood Count 4.16 M/uL (4.2-5.4) Hemoglobin 13.4 g/dL (12.0-16.0) Hematocrit 37.8 % (37-47) Mean Corpuscular Volume 90.9 fL (80-100) Mean Corpuscular Hemoglobin 32.2 pg (25-34) Mean Corpuscular Hemoglobin Concent 35.4 g/dl (32-36) Platelet Count 278 K/uL (130-400) Mean Platelet Volume 9.5 fL (7.4-10.4) RDW Standard Deviation 42.2 fL (36.4-46.3) RDW Coefficient of Variation 12.7 % (11.5-14.5) Nucleated RBC Absolute Count (auto) 0.00 K/uL (0-0) Neutrophils % (Manual) 88.6 % Lymphocytes % (Manual) 9.6 % Monocytes % (Manual) 0.9 % Blast Cells % 0.9 % Nucleated Red Blood Cells % 0.0 % Neutrophils # (Manual) 11.31 K/uL (1.4-6.5) Total Absolute Neutrophils 11.31 K/uL (1.4-6.5) Lymphocytes # (Manual) 1.22 K/uL (1.2-3.4) Total Absolute Lymphocytes 1.22 K/uL (1.2-3.4) Monocytes # (Manual) 0.11 K/uL (0.11-0.59) Blast Cells # 0.11 K/uL (0-0) Anion Gap 9.0 mmol/L (3-11) Est Creatinine Clear Calc Drug Dose 124.1 ml/min Estimated GFR () 134.5 Estimated GFR (Non- 116.1 BUN/Creatinine Ratio 10.8 (10-20) Calcium Level 8.8 mg/dl (8.5-10.1) Total Bilirubin 0.2 mg/dl (0.2-1) Direct Bilirubin < 0.1 mg/dl (0-0.2) Aspartate Amino Transf (AST/SGOT) 12 U/L (15-37) Alanine Aminotransferase (ALT/SGPT) 16 U/L (12-78) Alkaline Phosphatase 125 U/L (45-117) Total Protein 7.6 gm/dl (6.4-8.2) Albumin 3.5 gm/dl (3.4-5.0) Lipase 78 U/L (73-393) Labs reviewed by ED physician. Medications Administered Medications (Trade) Dose Ordered Sig/Nayla Route Start Time Stop Time Status Last Admin Dose Admin Ketorolac Tromethamine (Toradol Inj) 30 mg NOW STAT IV 07/09/17 18:43 07/09/17 18:46 DC 07/09/17 20:02 30 MG Prochlorperazine Edisylate (Compazine Inj) 10 mg NOW STAT IV 07/09/17 18:43 07/09/17 18:46 DC 07/09/17 20:03 10 MG Diphenhydramine HCl (Benadryl Inj) 50 mg NOW STAT IV 07/09/17 18:43 07/09/17 18:46 DC 07/09/17 20:00 50 MG Sodium Chloride 1,000 ml @ 999 mls/hr Q1H1M STAT IV 07/09/17 18:43 07/09/17 19:43 DC 07/09/17 19:59 999 MLS/HR Magnesium Sulfate (Magnesium Sulfate) 1 gm NOW STAT IV 07/09/17 18:43 07/09/17 18:46 DC 07/09/17 20:07 1 GM Ceftriaxone Sodium (Rocephin Inj) 1 gm NOW STAT IV 07/09/17 20:22 07/09/17 20:23 DC 07/09/17 21:09 1 GM ED Course 1841: Past medical records reviewed. The patient was evaluated in room B7. A complete history and physical examination was performed. 1842: Ordered Magnesium Sulfate 1 gm IV, NSS 1000 ml @ 999 mls/hr IV, Benadryl Inj 50 mg IV, Compazine Inj 10 mg IV, Toradol Inj 30 mg IV. 2021: Ordered Rocephin Inj 1 gm IV. 2043: I reevaluated the patient and she is doing well. 2134: Upon reexamination the patient is resting comfortable. I discussed results and treatment plan with the patient. She verbalizes agreement and understanding. The patient is ready for discharge. Medical Decision Differential diagnosis: Etiologies such as migraine headache, meningitis, sinusitis, CO exposure, ICH, SAH, infection, tumor, headache, sinus thrombosis, arterial dissection, as well as others were entertained. This is a 32-year-old female who presents emergency department complaining of headache. The patient reports she has never had a headache like this before however has no evidence of meningitis encephalitis on examination. In addition the patient does not have an elevation in her white blood cell count which I would believe to be consistent with meningitis. An IV was established, the patient was given Toradol, Compazine, Benadryl. Repeat examination revealed much improvement the patient's symptoms. The patient is not however has a urinary tract infection. She was given Rocephin in the emergency department for UTI. I do believe that the patient is well enough to be discharged home for follow-up with her primary care physician. Patient and family were in agreement with the treatment plan. 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 Patient and were in agreement with the treatment plan. Impression Primary Impression: Headache Scribe Attestation The scribe's documentation has been prepared under my direction and personally reviewed by me in its entirety. I confirm that the note above accurately reflects all work, treatment, procedures, and medical decision making performed by me. Departure Information Dispostion Home / Self-Care Prescriptions Sulfa/Trimethoprim (Bactrim Ds 800MG/160MG) Tab 1 TAB PO BID for 7 Days, #14 TAB Prov: Monster Funes MD 07/09/17 Referrals Lan Braxton M.D. (PCP) Forms HOME CARE DOCUMENTATION FORM, IMPORTANT VISIT INFORMATION Patient Instructions My [facility] Additional Instructions Follow up with Dr Lam's office for 1 abnormal white blood cell You have been examined and treated today on an emergency basis only. This is not a substitute for, or an effort to provide, complete comprehensive medical care. It is impossible to recognize and treat all injuries or illnesses in a single emergency department visit. It is therefore important that you follow up closely with Dr Braxton. Call as soon as possible for an appointment. Thank you for your time and consideration. I look forward to speaking with you again soon. Please don't hesitate to call us if you have any questions. Problem Qualifiers Primary Impression: Headache Headache type: unspecified Headache chronicity pattern: unspecified pattern Intractability: not intractable Qualified Codes: R51 - Headache
[2017-07-09 19:43] LABS: HEMATOCRIT 37.8 % (37-47); MEAN CELL VOLUME 90.9 fL (80-100); MEAN CORPUSCULAR HEMOGLOBIN 32.2 pg (25-34); MEAN CORPUSCULAR HGB CONC 35.4 g/dl (32-36); MEAN PLATELET VOLUME 9.5 fL (7.4-10.4); PLATELET COUNT 278 K/uL (130-400); RED BLOOD COUNT 4.16 M/uL (4.2-5.4); WHITE BLOOD COUNT 12.76 K/uL (4.8-10.8)
[2017-07-09 19:51] LABS: URINE APPEARANCE CLOUDY (CLEAR); URINE BILIRUBIN NEG (NEG); URINE COLOR YELLOW; URINE EPITHELIAL CELL AUTO >30 /lpf (0-5); URINE NITRITE NEG (NEG); URINE SPECIFIC GRAVITY 1.023 (1.000-1.030); UROBILINOGEN NEG (NEG)
[2017-07-09 19:58] LABS: ALT/SGPT 16 U/L (12-78); BLOOD UREA NITROGEN 7 mg/dl (7-18); BUN/CREATININE RATIO 10.8 (10-20); CALCIUM 8.8 mg/dl (8.5-10.1); CARBON DIOXIDE 21 mmol/L (21-32); CHLORIDE 111 mmol/L (98-107); CREATININE 0.66 mg/dl (0.60-1.20); GLUCOSE 103 mg/dl (70-99); POTASSIUM 3.3 mmol/L (3.5-5.1); SODIUM 141 mmol/L (136-145)
[2017-07-09 20:00] LABS: ALKALINE PHOSPHATASE 125 U/L (45-117); AST/SGOT 12 U/L (15-37)
[2017-07-09 20:08] LABS: MANUAL MICROSCOPIC REQUIRED? NO; REVIEW REQ? YES; SULFASALICYLIC ACID NEG (NEG)
[2017-07-09 20:17] LABS: URINE MUCUS PRESENT (NONE PRSENT)
[2017-07-09] MEDS ORDERED: CEFTRIAXONE SOD INJ 1 GM ADDVIAL IV STA (20:22)
[2017-07-09 20:31] LABS: COMPLETE YES; LYMPH ABS # 1.22 K/uL (1.2-3.4); LYMPHOCYTE % 9.6 %; NEUTROPHILS % 88.6 %
--- NOTE | 2017-07-09 20:49 | DIAGNOSTIC IMAGING REPORT ---
CT OF THE HEAD WITHOUT CONTRAST CLINICAL HISTORY: Headache. COMPARISON STUDY: Head CT January 21, 2015 and MRI of the brain September 17, 2013. CT DOSE: 537.48 mGy.cm TECHNIQUE: Helical axial images of the head were obtained without IV contrast. Automated exposure control was utilized for the study. A dose lowering technique was utilized adhering to the principles of ALARA. FINDINGS: No acute intracranial hemorrhage, midline shift or mass effect is present. Brain volume is normal. Ventricular system is normal. Basilar cisterns are patent. There are no extra-axial collections. Rajan-white differentiation is maintained. There are no findings to suggest acute dural sinus thrombosis or acute territorial infarct. The appearance of the brain is unchanged. Visualized portions of the sinuses and the mastoid air cells are clear. There are no significant calvarial abnormalities. IMPRESSION: No acute intracranial findings. Electronically signed by: Anthony Blackwood M.D. 07/09/2017 8:47 PM Dictated Date/Time: 07/09/2017 8:46 PM
[2017-07-09] MEDS ORDERED: SULF800T23 PO (21:52)
[2017-07-09 21:57] VITALS: BP 113/82; PULSE 59; O2SAT 98
== END 2017-07-09 22:01 | disposition home or self-care (01) ==
LOC: C.EDB 17:37
DX: R51 Headache (principal); E11.9 Type 2 diabetes mellitus without complications; E03.9 Hypothyroidism, unspecified; Z83.3 Family history of diabetes mellitus

== ENCOUNTER 2017-09-10 17:58 | Emergency (ER) | payer OTHER ==
[~2017-09-10] VITALS: Ht 154.9 cm; Wt 92.0 kg
[~2017-09-10 17:58] MED LIST changes: -ONDA4TAB46 PO
[2017-09-10 18:15] VITALS: TEMP 36.6; Ht 154.9 cm; Wt 92.0 kg
[2017-09-10] MEDS ORDERED: ONDANSETRON INJ 2 MG/ML 2 ML VIAL IV STA (18:27)
[2017-09-10] MEDS ORDERED: KETOROLAC TROMETHAMINE 30 MG/ML VIAL IV STA (18:27)
--- NOTE | 2017-09-10 18:41 | EMERGENCY ROOM VISIT NOTE ---
History Report prepared by Kevin: Ludy Hardy Under the Supervision of: Dr. Amando Davis M.D. First contact with patient: 18:17 Chief Complaint: ABDOMINAL PAIN Stated Complaint: ABDOMINAL PAIN Nursing Triage Summary: c/o diffuse abd paind with vomitting and dysuria History of Present Illness The patient is a 32 year old female who presents to the Emergency Room with complaints of worsening LLQ abdominal pain for the past 1.5 weeks. She is experiencing some nausea. She took Zofran this morning and had some relief of her nausea. The patient rates her pain as an 8/10 in severity. She states that trying to have a bowel movement exacerbates her abdominal pain. She has been taking Tylenol without any relief of her pain. The patient denies fever, rash, vomiting, chest pain, shortness of breath, back pain, urinary symptoms, constipation, diarrhea, melena, and hematochezia. She denies any recent trauma or injury. She denies any personal history diverticulitis. Her LNMP was 2 days ago and she denies any chance of . She denies any previous abdominal surgeries. Source of History: patient Onset: 1.5 weeks ago Position: abdomen (LLQ) Symptom Intensity: 8/10 Timing: worsening Modifying Factors (Worsening): defecation Modifying Factors (Relieving): anti-emetics Associated Symptoms: + nausea, No fevers, No chest pain, No SOB, No vomiting , No back pain, No melena, No hematochezia, No diarrhea, No urinary symptoms, No rash Review of Systems See HPI for pertinent positives & negatives. A total of 10 systems reviewed and were otherwise negative. Past Medical & Surgical Medical Problems: (1) Carpal tunnel syndrome (2) Chest pain (3) Chest pain (4) Chest pain (5) Chest pain (6) Depression (7) Diab Vilma Wo Compl, Type Ii Or Unspec Type, Not Uncntrld (8) Hypothyroidism (9) Migraine Unspecified W/O Intractable Migraine Old medical records were reviewed. Nurse's notes were reviewed and I agree with. Family History Diabetes mellitus Social History Smoking Status: Current Every Day Smoker Alcohol Use: none Marital Status: Housing Status: lives with significant other Occupation Status: unemployed Current/Historical Medications Scheduled Atorvastatin (Lipitor), 10 MG PO DAILY Fluoxetine (Prozac), 40 MG PO QAM Gabapentin (Neurontin), 600 MG PO TID Levothyroxine Sodium (Synthroid), 50 MCG PO DAILY Mirtazapine (Remeron), 15 MG PO HS Quetiapine Fumarate (Seroquel), 50 MG PO HS Topiramate (Topamax), 200 MG PO BID Scheduled PRN Cyclobenzaprine Hcl (Flexeril), 10 MG PO HS PRN for Muscle Spasms Dicyclomine Hcl (Dicyclomine Hcl), 10 MG PO QID PRN for Cramping Ondansetron Hcl (Zofran), 4 MG PO Q6 PRN for Nausea Allergies Coded Allergies: Morphine (Verified Adverse Reaction, Unknown, dizzy and feels like fainting, 09/10/17) Physical Exam Vital Signs Date Time Temp Pulse Resp B/P (MAP) Pulse Ox O2 Delivery O2 Flow Rate FiO2 09/10/17 20:23 71 18 130/79 98 09/10/17 18:15 36.6 77 16 124/86 97 Physical Exam General: Non-ill appearing young female in no acute distress. HEENT: Normal cephalic atraumatic. Pupils are equal round and reactive to light. Extraocular movements are intact. Oropharynx is pink with moist mucous membranes. No swelling of the mouth lips or tongue. Neck: Supple with a midline trachea. No meningeal signs or stiffness, no JVD or bruits. No Stridor. Chest: Clear to auscultation bilaterally. No wheezes or rhonchi. No increased work of breathing. Heart: regular rate and rhythm. Abdomen: Soft mildly tender in the LLQ, nondistended without rebound guarding or rigidity. Extremities: No cyanosis clubbing or edema. No calf tenderness or assymetry Spine/Back. Non tender to palpation. No CVA tenderness Skin: Good turgor without rashes. Neurologic exam: Cranial nerves two through 12 are intact. Motor and sensation are intact and symmetrical throughout. Medical Decision & Procedures ER Provider Diagnostic Interpretation: Radiology results as stated below per my review and radiologist interpretation: CT SCAN OF THE ABDOMEN AND PELVIS WITHOUT IV CONTRAST CLINICAL HISTORY: Generalized abdominal pain. COMPARISON STUDY: Abdominal CT dated 03/16/2017 TECHNIQUE: CT scan of the abdomen and pelvis is performed from the lung bases to the proximal femora. Images are reviewed in the axial, sagittal, and coronal planes. IV contrast was not administered for this examination as per the referring clinician. Note that the examination was performed in suboptimal fashion without oral and IV contrast. A dose lowering technique was utilized adhering to the principles of ALARA. CT DOSE: 856.95 mGy.cm FINDINGS: Lung bases: The heart is normal in size and without pericardial effusion. The lung bases are clear. Liver: The unenhanced liver is normal in size, contour, and attenuation. There is no intrahepatic biliary ductal dilatation. Gallbladder: Contracted. Spleen: Normal in size and attenuation. Pancreas: Unremarkable. Adrenal glands: Unremarkable. Kidneys: The unenhanced kidneys are normal in size and without hydronephrosis. There are no renal calculi identified. There is no evidence of contour deforming renal mass lesion. Abdominal vasculature: The abdominal aorta is normal in course and caliber. Bowel: The small bowel and colon are normal in course and caliber. The appendix is well-visualized and normal. Peritoneum: There is no intraperitoneal free air or abdominal ascites. There is a fat-containing umbilical hernia. Lymphadenopathy: None. Pelvic viscera: The bladder is decompressed and grossly unremarkable. The uterus and adnexa are normal as visualized. Skeletal structures: No lytic or blastic lesions are seen. Mild sclerotic change is noted in the sacroiliac joints. IMPRESSION: There are no acute infectious or inflammatory findings in the abdomen or pelvis. Electronically signed by: Landen Ryan M.D. 09/10/2017 7:05 PM Dictated Date/Time: 09/10/2017 7:02 PM Laboratory Results 09/10/17 18:30 Red Blood Count 4.58, Mean Corpuscular Volume 92.1, Mean Corpuscular Hemoglobin 31.7, Mean Corpuscular Hemoglobin Concent 34.4, Mean Platelet Volume 9.4, Neutrophils (%) (Auto) 64.3, Lymphocytes (%) (Auto) 29.4, Monocytes (%) (Auto) 4.9, Eosinophils (%) (Auto) 0.8, Basophils (%) (Auto) 0.3, Neutrophils # (Auto) 6.42, Lymphocytes # (Auto) 2.94, Monocytes # (Auto) 0.49, Eosinophils # (Auto) 0.08, Basophils # (Auto) 0.03 09/10/17 18:30 Test 09/10/17 18:30 White Blood Count 9.99 K/uL (4.8-10.8) Red Blood Count 4.58 M/uL (4.2-5.4) Hemoglobin 14.5 g/dL (12.0-16.0) Hematocrit 42.2 % (37-47) Mean Corpuscular Volume 92.1 fL (80-100) Mean Corpuscular Hemoglobin 31.7 pg (25-34) Mean Corpuscular Hemoglobin Concent 34.4 g/dl (32-36) Platelet Count 336 K/uL (130-400) Mean Platelet Volume 9.4 fL (7.4-10.4) Neutrophils (%) (Auto) 64.3 % Lymphocytes (%) (Auto) 29.4 % Monocytes (%) (Auto) 4.9 % Eosinophils (%) (Auto) 0.8 % Basophils (%) (Auto) 0.3 % Neutrophils # (Auto) 6.42 K/uL (1.4-6.5) Lymphocytes # (Auto) 2.94 K/uL (1.2-3.4) Monocytes # (Auto) 0.49 K/uL (0.11-0.59) Eosinophils # (Auto) 0.08 K/uL (0-0.5) Basophils # (Auto) 0.03 K/uL (0-0.2) RDW Standard Deviation 42.8 fL (36.4-46.3) RDW Coefficient of Variation 12.8 % (11.5-14.5) Immature Granulocyte % (Auto) 0.3 % Immature Granulocyte # (Auto) 0.03 K/uL (0.00-0.02) Urine Color YELLOW Urine Appearance CLOUDY (CLEAR) Urine pH 5.0 (4.5-7.5) Urine Specific Amado 1.012 (1.000-1.030) Urine Protein NEG (NEG) Urine Glucose (UA) NEG (NEG) Urine Ketones NEG (NEG) Urine Occult Blood 3+ (NEG) Urine Nitrite NEG (NEG) Urine Bilirubin NEG (NEG) Urine Urobilinogen NEG (NEG) Urine Leukocyte Esterase NEG (NEG) Urine WBC (Auto) 1-5 /hpf (0-5) Urine RBC (Auto) 0-4 /hpf (0-4) Urine Hyaline Casts (Auto) 1-5 /lpf (0-5) Urine Epithelial Cells (Auto) >30 /lpf (0-5) Urine Bacteria (Auto) 1+ (NEG) Urine Test NEG (NEG) Anion Gap 7.0 mmol/L (3-11) Est Creatinine Clear Calc Drug Dose 119.8 ml/min Estimated GFR () 132.6 Estimated GFR (Non- 114.4 BUN/Creatinine Ratio 19.1 (10-20) Calcium Level 9.1 mg/dl (8.5-10.1) Total Bilirubin 0.1 mg/dl (0.2-1) Direct Bilirubin < 0.1 mg/dl (0-0.2) Aspartate Amino Transf (AST/SGOT) 15 U/L (15-37) Alanine Aminotransferase (ALT/SGPT) 27 U/L (12-78) Alkaline Phosphatase 139 U/L (45-117) Total Protein 8.2 gm/dl (6.4-8.2) Albumin 3.7 gm/dl (3.4-5.0) Lipase 146 U/L (73-393) Laboratory studies as stated above per my review. Medications Administered Medications (Trade) Dose Ordered Sig/Nayla Route Start Time Stop Time Status Last Admin Dose Admin Ketorolac Tromethamine (Toradol Inj) 30 mg NOW STAT IV 09/10/17 18:27 09/10/17 18:29 DC 09/10/17 19:14 30 MG Ondansetron HCl (Zofran Inj) 4 mg NOW STAT IV 09/10/17 18:27 09/10/17 18:29 DC 09/10/17 19:15 4 MG Oxycodone HCl (Roxicodone Immediate Rel Tab) 5 mg NOW STAT PO 09/10/17 19:51 09/10/17 19:52 DC 09/10/17 20:18 5 MG Oxycodone HCl (Roxicodone Immediate Rel 5MG Home Pack) 1 homepack UD ONCE PO 09/10/17 20:15 09/10/17 20:16 DC 09/10/17 20:18 1 HOMEPACK ED Course 1816: Past medical records reviewed. The patient was evaluated in room A10, and a complete history and physical examination were performed. 1826: Zofran 4 mg IV, Toradol 30 mg IV 1936: I reassessed the patient. She is still having some pain. 1950: Oxycodone HCl 5 mg PO 2007: I reassessed the patient at this time. She is feeling better and resting comfortably. I discussed the results and treatment plan with the patient. I answered all pertaining questions that she had. She expressed understanding and verbalized agreement. The patient will be discharged home. 2015: Oxycodone HCl 1 homepack PO Medical Decision Differentials include, but are not limited to; diverticulitis, UTI, , electrolyte or metabolic abnormality. This patient comes in as described above. She was placed in room A 10. She's been having abdominal pain in the left lower quadrant primarily. She's had a little bit of nausea. No trauma. No dysuria or hematuria. Denies or vaginal bleeding or discharge. No back pain. IV access was established and she was hydrated with IV normal saline. She was given Toradol 30 mg IV and Zofran 4 mg IV for pain and nausea management. Multiple blood testing was obtained as well as urinalysis and culture and test. Also the CAT scan to rule out diverticulitis and other intra-abdominal pathology. She was reassessed frequently. She has no fever or white count to suggest infection. She has a negative test. Her urinalysis has blood but does not suggest infection otherwise and she has no dysuria. She has no acute electrode or metabolic abnormalities. She's had nothing to suggest liver or gallbladder or pancreas disease. She has normal kidney function. CAT scan of her abdomen was unremarkable. No acute findings. There is nothing to suggest acute diverticulitis. Upon reassessment, she is feeling better still has some pain. I did order OxyIR 5 mg and gave her a home pack. She was warned that it could make her drowsy do not take before drinking, driving, working. This may be more related to her irritable bowel. It could be musculoskeletal. She should rest and drink plenty of fluids. Return if: increasing pain, fever or chills, worsening of symptoms, any new problems or concerns. The patient has were happy with plan and she was discharged to home. She should follow up with her doctor this week for recheck. Medication Reconcilliation Current Medication List: was personally reviewed by me Blood Pressure Screening Patient's blood pressure: Normal blood pressure Impression Primary Impression: LLQ abdominal pain Scribe Attestation The scribe's documentation has been prepared under my direction and personally reviewed by me in its entirety. I confirm that the note above accurately reflects all work, treatment, procedures, and medical decision making performed by me. Departure Information Dispostion Home / Self-Care Referrals Lan Braxton M.D. (PCP) Forms Call Back Authorization, HOME CARE DOCUMENTATION FORM, IMPORTANT VISIT INFORMATION Patient Instructions My [facility] Additional Instructions Rest Drink plenty of fluids For pain, may use ibuprofen 400 mg every 6 hours, take with food For more severe pain, may use OxyIR 5 mg, one or 2 pills every 4-6 hours as needed. OxyIR may make you drowsy and do not take before drinking, driving, working Return if: worsening of symptoms, fever, increasing pain, not tolerating fluids , any new problems or concerns. Follow-up with your doctor this week for recheck
[2017-09-10 18:48] LABS: BASO % 0.3 %; BASO ABS # 0.03 K/uL (0-0.2); COMPLETE YES; EOS % 0.8 %; HEMATOCRIT 42.2 % (37-47); IG% 0.3 %; LYMPH % 29.4 %; LYMPH ABS # 2.94 K/uL (1.2-3.4); MEAN CELL VOLUME 92.1 fL (80-100); MEAN CORPUSCULAR HEMOGLOBIN 31.7 pg (25-34); MEAN CORPUSCULAR HGB CONC 34.4 g/dl (32-36); MEAN PLATELET VOLUME 9.4 fL (7.4-10.4); MONO % 4.9 %; NEUT % 64.3 %; PLATELET COUNT 336 K/uL (130-400); RED BLOOD COUNT 4.58 M/uL (4.2-5.4); WHITE BLOOD COUNT 9.99 K/uL (4.8-10.8)
[2017-09-10] MEDS ORDERED: CYCL10TA6 PO (18:56)
[2017-09-10] MEDS ORDERED: ONDA4TAB65 PO (18:56)
[2017-09-10] MEDS ORDERED: FLUO40CA8 PO (18:56)
[2017-09-10] MEDS ORDERED: MIRT15TA PO (18:56)
[2017-09-10 19:01] LABS: URINE APPEARANCE CLOUDY (CLEAR); URINE BILIRUBIN NEG (NEG); URINE COLOR YELLOW; URINE EPITHELIAL CELL AUTO >30 /lpf (0-5); URINE NITRITE NEG (NEG); URINE SPECIFIC GRAVITY 1.012 (1.000-1.030); UROBILINOGEN NEG (NEG)
[2017-09-10 19:03] LABS: PREG INTERNAL NEGATIVE QC NEG CLEAR BACKGROUND; PREG INTERNAL POSITIVE QC POS CONTROL LINE
[2017-09-10 19:04] LABS: MANUAL MICROSCOPIC REQUIRED? NO; REVIEW REQ? YES
--- NOTE | 2017-09-10 19:07 | DIAGNOSTIC IMAGING REPORT ---
CT SCAN OF THE ABDOMEN AND PELVIS WITHOUT IV CONTRAST CLINICAL HISTORY: Generalized abdominal pain. COMPARISON STUDY: Abdominal CT dated 03/16/2017 TECHNIQUE: CT scan of the abdomen and pelvis is performed from the lung bases to the proximal femora. Images are reviewed in the axial, sagittal, and coronal planes. IV contrast was not administered for this examination as per the referring clinician. Note that the examination was performed in suboptimal fashion without oral and IV contrast. A dose lowering technique was utilized adhering to the principles of ALARA. CT DOSE: 856.95 mGy.cm FINDINGS: Lung bases: The heart is normal in size and without pericardial effusion. The lung bases are clear. Liver: The unenhanced liver is normal in size, contour, and attenuation. There is no intrahepatic biliary ductal dilatation. Gallbladder: Contracted. Spleen: Normal in size and attenuation. Pancreas: Unremarkable. Adrenal glands: Unremarkable. Kidneys: The unenhanced kidneys are normal in size and without hydronephrosis. There are no renal calculi identified. There is no evidence of contour deforming renal mass lesion. Abdominal vasculature: The abdominal aorta is normal in course and caliber. Bowel: The small bowel and colon are normal in course and caliber. The appendix is well-visualized and normal. Peritoneum: There is no intraperitoneal free air or abdominal ascites. There is a fat-containing umbilical hernia. Lymphadenopathy: None. Pelvic viscera: The bladder is decompressed and grossly unremarkable. The uterus and adnexa are normal as visualized. Skeletal structures: No lytic or blastic lesions are seen. Mild sclerotic change is noted in the sacroiliac joints. IMPRESSION: There are no acute infectious or inflammatory findings in the abdomen or pelvis. Electronically signed by: Landen Ryan M.D. 09/10/2017 7:05 PM Dictated Date/Time: 09/10/2017 7:02 PM
[2017-09-10 19:26] LABS: ALKALINE PHOSPHATASE 139 U/L (45-117); ALT/SGPT 27 U/L (12-78); AST/SGOT 15 U/L (15-37); BLOOD UREA NITROGEN 13 mg/dl (7-18); BUN/CREATININE RATIO 19.1 (10-20); CALCIUM 9.1 mg/dl (8.5-10.1); CARBON DIOXIDE 25 mmol/L (21-32); CHLORIDE 107 mmol/L (98-107); CREATININE 0.69 mg/dl (0.60-1.20); GLUCOSE 96 mg/dl (70-99); POTASSIUM 3.8 mmol/L (3.5-5.1); SODIUM 139 mmol/L (136-145)
[2017-09-10] MEDS ORDERED: OXYCODONE HCL IR 5 MG TAB (IMMEDIATE RELEASE) PO STA (19:51)
[2017-09-10] MEDS ORDERED: OXYCODONE IR HOME PACK PO ONE (20:15)
[2017-09-10 20:23] VITALS: BP 130/79; PULSE 71; O2SAT 98
== END 2017-09-10 20:24 | disposition home or self-care (01) ==
LOC: C.EDB 18:00 → C.EDA 20:24
DX: R10.32 Left lower quadrant pain (principal); R11.0 Nausea; E11.9 Type 2 diabetes mellitus without complications; E03.9 Hypothyroidism, unspecified; F17.210 Nicotine dependence, cigarettes, uncomplicated; Z79.899 Other long term (current) drug therapy

== ENCOUNTER 2017-09-13 13:10 | Emergency (ER) | payer OTHER ==
[~2017-09-13] VITALS: Ht 154.9 cm; Wt 97.5 kg
[~2017-09-13 13:10] MED LIST changes: -ASPI1TAB PO; +ATOR10TA82 PO; -ATOR10TA88 PO; -BUPR100T8 PO; +CYCL10TA6 PO; -CYCL5TAB PO; -FLUO10CA48 PO; -INDO-22 PO; +MIRT15TA PO; -MIRT45TA3 PO; +ONDA4TAB65 PO; -PRT/20 PO
[2017-09-13 13:17] VITALS: TEMP 37; Ht 154.9 cm; Wt 97.5 kg
[2017-09-13] MEDS ORDERED: KETOROLAC TROMETHAMINE 30 MG/ML VIAL IV STA (13:41)
[2017-09-13 14:16] LABS: BASO % 0.2 %; BASO ABS # 0.02 K/uL (0-0.2); COMPLETE YES; HEMATOCRIT 37.8 % (37-47); IG% 0.2 %; LYMPH ABS # 2.29 K/uL (1.2-3.4); MEAN CELL VOLUME 92.4 fL (80-100); MEAN CORPUSCULAR HEMOGLOBIN 31.8 pg (25-34); MEAN CORPUSCULAR HGB CONC 34.4 g/dl (32-36); MEAN PLATELET VOLUME 9.3 fL (7.4-10.4); MONO % 4.8 %; NEUT % 69.8 %; PLATELET COUNT 283 K/uL (130-400); RED BLOOD COUNT 4.09 M/uL (4.2-5.4); WHITE BLOOD COUNT 9.55 K/uL (4.8-10.8)
[2017-09-13 14:22] LABS: URINE APPEARANCE CLEAR (CLEAR); URINE BILIRUBIN NEG (NEG); URINE COLOR YELLOW; URINE EPITHELIAL CELL AUTO >30 /lpf (0-5); URINE NITRITE NEG (NEG); URINE SPECIFIC GRAVITY 1.012 (1.000-1.030); UROBILINOGEN NEG (NEG)
[2017-09-13 14:27] LABS: MANUAL MICROSCOPIC REQUIRED? NO; REVIEW REQ? NO
--- NOTE | 2017-09-13 14:35 | DIAGNOSTIC IMAGING REPORT ---
ABDOMEN 2VIEW W/PA CHEST RTN CLINICAL HISTORY: Left upper quadrant abdominal pain COMPARISON STUDY: 08/04/2014 FINDINGS: The erect chest reveals no free air. There is no focal pulmonary consolidation. Erect and supine views the abdomen reveal no abnormally dilated loops of large or small bowel. There are no transition zones to indicate bowel obstruction. There are 2 coin shaped radiopaque foreign bodies project over the stomach. Each object measures approximately 22 mm. IMPRESSION: 1. 2 coin-shaped radiopaque foreign bodies project over the stomach 2. No evidence of bowel obstruction. No evidence of free air Electronically signed by: Zeyad Peña M.D. 09/13/2017 2:33 PM Dictated Date/Time: 09/13/2017 2:32 PM
--- NOTE | 2017-09-13 14:51 | DIAGNOSTIC IMAGING REPORT ---
RENAL ULTRASOUND HISTORY: Left flank pain COMPARISON: Abdomen and pelvis CT 09/10/2017. FINDINGS: Right kidney: 10.8 cm. No hydronephrosis. Normal corticomedullary differentiation and cortical thickness. Left kidney: 12.1 cm. No hydronephrosis. Normal corticomedullary differentiation and cortical thickness. Bladder: No bladder wall thickening. The bilateral ureteral jets were identified. IMPRESSION: Normal renal ultrasound. Electronically signed by: Alec Bhagat M.D. 09/13/2017 2:50 PM Dictated Date/Time: 09/13/2017 2:49 PM
[2017-09-13 15:27] LABS: ALB/GLOB RATIO 0.9 (0.9-2); ALKALINE PHOSPHATASE 119 U/L (45-117); ALT/SGPT 26 U/L (12-78); BLOOD UREA NITROGEN 8 mg/dl (7-18); BUN/CREATININE RATIO 16.2 (10-20); CALCIUM 8.5 mg/dl (8.5-10.1); CARBON DIOXIDE 22 mmol/L (21-32); CHLORIDE 109 mmol/L (98-107); CREATININE 0.52 mg/dl (0.60-1.20); GLUCOSE 111 mg/dl (70-99); SODIUM 141 mmol/L (136-145)
[2017-09-13 15:34] VITALS: BP 145/106; PULSE 82; O2SAT 100
--- NOTE | 2017-09-13 16:40 | EMERGENCY ROOM VISIT NOTE ---
History First contact with patient: 13:27 Chief Complaint: ABDOMINAL PAIN Stated Complaint: ABDOMINAL PAIN Nursing Triage Summary: pt reports last bm was 2 days ago.", left sided abd pain x 2 weeks. + nausea and vomitting. was seen in ED on saturday "they really couldn't find any thing and said if it got worse to come back." History of Present Illness The patient is a 32 year old female who presents to the Emergency Room with complaints of left-sided abdominal pain for the past 2 weeks. The patient is nauseated throughout the day and has had intermittent episodes of vomiting. The patient was seen here in the department about 3 days ago where blood work and CT scan of the abdomen and pelvis did not reveal an etiology for her symptoms. She did provide a urine sample that was grossly contaminated at that visit. She was given medication that did improve her symptoms while she was here. She states her pain has returned. The patient evidently has an appointment with her primary care physician tomorrow morning, but did not feel like she can wait until that appointment occurred. She rates her current discomfort a 3/10. Review of Systems More than 10 systems were reviewed and otherwise negative with the exception of history of present illness. Past Medical/Surgical History Medical Problems: (1) Carpal tunnel syndrome (2) Chest pain (3) Chest pain (4) Chest pain (5) Chest pain (6) Depression (7) Diab Vilma Wo Compl, Type Ii Or Unspec Type, Not Uncntrld (8) Hypothyroidism (9) Migraine Unspecified W/O Intractable Migraine Family History Diabetes mellitus Social History Smoking Status: Never Smoker Alcohol Use: none Marital Status: Housing Status: lives with significant other Occupation Status: unemployed Current/Historical Medications Scheduled Atorvastatin (Lipitor), 10 MG PO DAILY Fluoxetine (Prozac), 40 MG PO QAM Gabapentin (Neurontin), 600 MG PO TID Levothyroxine Sodium (Synthroid), 50 MCG PO DAILY Mirtazapine (Remeron), 15 MG PO HS Quetiapine Fumarate (Seroquel), 50 MG PO HS Topiramate (Topamax), 200 MG PO BID Scheduled PRN Cyclobenzaprine Hcl (Flexeril), 10 MG PO HS PRN for Muscle Spasms Dicyclomine Hcl (Dicyclomine Hcl), 10 MG PO QID PRN for Cramping Ondansetron Hcl (Zofran), 4 MG PO Q6 PRN for Nausea Allergies Coded Allergies: Morphine (Verified Adverse Reaction, Unknown, dizzy and feels like fainting, 09/13/17) Physical Exam Vital Signs Date Time Temp Pulse Resp B/P (MAP) Pulse Ox O2 Delivery O2 Flow Rate FiO2 09/13/17 15:34 82 16 145/106 100 09/13/17 15:00 82 16 145/106 100 Room Air 09/13/17 13:17 37.0 108 18 142/95 95 Room Air Physical Exam VITALS: Vitals are noted on the nurse's note and reviewed by myself. Vital signs stable. GENERAL: Well-developed, well-nourished, white female, who is in no acute distress and resting comfortably. Patient is cooperative with the examinatio NECK: Supple without nuchal rigidity. No lymphadenopathy. No thyromegaly. Cervical spine is nontender. HEART: Regular rate and rhythm without murmurs gallops or rubs. LUNGS: Clear to auscultation bilaterally without wheezes, rales or rhonchi. No retractions or accessory muscle use. ABDOMEN: Positive normal bowel sounds x 4. Soft with left flank into left upper quadrant tenderness on palpation. No rash or lesion noted. No concerning palpable mass. No CVA tenderness. No lower abdominal tenderness. MUSCULOSKELETAL: No muscle atrophy, erythema, or edema noted. Full range of motion without joint tenderness in all extremities. Medical Decision & Procedures ER Provider Diagnostic Interpretation: RENAL ULTRASOUND HISTORY: Left flank pain COMPARISON: Abdomen and pelvis CT 09/10/2017. FINDINGS: Right kidney: 10.8 cm. No hydronephrosis. Normal corticomedullary differentiation and cortical thickness. Left kidney: 12.1 cm. No hydronephrosis. Normal corticomedullary differentiation and cortical thickness. Bladder: No bladder wall thickening. The bilateral ureteral jets were identified. ABDOMEN 2VIEW W/PA CHEST RTN CLINICAL HISTORY: Left upper quadrant abdominal pain COMPARISON STUDY: 08/04/2014 FINDINGS: The erect chest reveals no free air. There is no focal pulmonary consolidation. Erect and supine views the abdomen reveal no abnormally dilated loops of large or small bowel. There are no transition zones to indicate bowel obstruction. There are 2 coin shaped radiopaque foreign bodies project over the stomach. Each object measures approximately 22 mm. IMPRESSION: 1. 2 coin-shaped radiopaque foreign bodies project over the stomach 2. No evidence of bowel obstruction. No evidence of free air Laboratory Results 09/13/17 13:55 Red Blood Count 4.09, Mean Corpuscular Volume 92.4, Mean Corpuscular Hemoglobin 31.8, Mean Corpuscular Hemoglobin Concent 34.4, Mean Platelet Volume 9.3, Neutrophils (%) (Auto) 69.8, Lymphocytes (%) (Auto) 24.0, Monocytes (%) (Auto) 4.8, Eosinophils (%) (Auto) 1.0, Basophils (%) (Auto) 0.2, Neutrophils # (Auto) 6.66, Lymphocytes # (Auto) 2.29, Monocytes # (Auto) 0.46, Eosinophils # (Auto) 0.10, Basophils # (Auto) 0.02 09/13/17 13:55 Test 09/13/17 13:55 White Blood Count 9.55 K/uL (4.8-10.8) Red Blood Count 4.09 M/uL (4.2-5.4) Hemoglobin 13.0 g/dL (12.0-16.0) Hematocrit 37.8 % (37-47) Mean Corpuscular Volume 92.4 fL (80-100) Mean Corpuscular Hemoglobin 31.8 pg (25-34) Mean Corpuscular Hemoglobin Concent 34.4 g/dl (32-36) Platelet Count 283 K/uL (130-400) Mean Platelet Volume 9.3 fL (7.4-10.4) Neutrophils (%) (Auto) 69.8 % Lymphocytes (%) (Auto) 24.0 % Monocytes (%) (Auto) 4.8 % Eosinophils (%) (Auto) 1.0 % Basophils (%) (Auto) 0.2 % Neutrophils # (Auto) 6.66 K/uL (1.4-6.5) Lymphocytes # (Auto) 2.29 K/uL (1.2-3.4) Monocytes # (Auto) 0.46 K/uL (0.11-0.59) Eosinophils # (Auto) 0.10 K/uL (0-0.5) Basophils # (Auto) 0.02 K/uL (0-0.2) RDW Standard Deviation 43.8 fL (36.4-46.3) RDW Coefficient of Variation 13.0 % (11.5-14.5) Immature Granulocyte % (Auto) 0.2 % Immature Granulocyte # (Auto) 0.02 K/uL (0.00-0.02) Urine Color YELLOW Urine Appearance CLEAR (CLEAR) Urine pH 7.0 (4.5-7.5) Urine Specific [place] 1.012 (1.000-1.030) Urine Protein NEG (NEG) Urine Glucose (UA) NEG (NEG) Urine Ketones NEG (NEG) Urine Occult Blood TRACE (NEG) Urine Nitrite NEG (NEG) Urine Bilirubin NEG (NEG) Urine Urobilinogen NEG (NEG) Urine Leukocyte Esterase NEG (NEG) Urine WBC (Auto) 1-5 /hpf (0-5) Urine RBC (Auto) 0-4 /hpf (0-4) Urine Hyaline Casts (Auto) 1-5 /lpf (0-5) Urine Epithelial Cells (Auto) >30 /lpf (0-5) Urine Bacteria (Auto) NEG (NEG) Anion Gap 9.0 mmol/L (3-11) Est Creatinine Clear Calc Drug Dose 164.4 ml/min Estimated GFR () 145.5 Estimated GFR (Non- 125.5 BUN/Creatinine Ratio 16.2 (10-20) Calcium Level 8.5 mg/dl (8.5-10.1) Total Bilirubin 0.2 mg/dl (0.2-1) Aspartate Amino Transf (AST/SGOT) U/L (15-37) Alanine Aminotransferase (ALT/SGPT) 26 U/L (12-78) Alkaline Phosphatase 119 U/L (45-117) Total Protein 7.1 gm/dl (6.4-8.2) Albumin 3.3 gm/dl (3.4-5.0) Globulin 3.8 gm/dl (2.5-4.0) Albumin/Globulin Ratio 0.9 (0.9-2) Lipase 101 U/L (73-393) Medications Administered Medications (Trade) Dose Ordered Sig/Nayla Route Start Time Stop Time Status Last Admin Dose Admin Ketorolac Tromethamine (Toradol Inj) 30 mg NOW STAT IV 09/13/17 13:41 09/13/17 13:44 DC 09/13/17 14:01 30 MG ED Course Physical exam and history were performed. Nursing notes, EMR, and Medication List were personally reviewed. Patient appears to have persisting left-sided abdominal pain for the past 2 weeks. On examination she does have some mild left flank and left upper quadrant tenderness. She does not appear toxic. IV access was established and labs were obtained. The patient was given IV Toradol here in the department for comfort. Urine was collected. She does have a recent CT scan from a few days ago that was essentially normal. I elected to defer repeat CT imaging, but did feel that plain films and ultrasound were reasonable. The patient's blood work is as above and was reviewed. She does not have a significantly elevated white blood cell count, gross anemia, bandemia, or significant electrolyte imbalance. Lipase and transaminases are nondiagnostic. Urine was without obvious infection. Ultrasound was also without significant findings. Of note, the patient does have 2 coin like objects on x-rays of her abdomen. She did not have other significant findings on plain films. I rechecked the patient, and she was wearing blue jeans with a metallic button, which in theory could be one of the 2 objects. There certainly was no external foreign body on her clothing that accounts for the other coin however. I had a very lengthy discussion with the patient regarding this. She flatly denies ingesting any metallic foreign body. I was able to compare the abdominal x-rays today to the coffee urn attendant film from her CT scan a few days ago, and these foreign bodies were not appreciated then. I continued my discussion with the patient after showing this to her, and she became more and more evasive with answering questions about this. The patient was accompanied by a female machine taper, who evidently stays with the patient all the time. There was no known episode of intentional ingestion. The patient is without suicidal or homicidal ideation, and she does not appear to be harming herself. She does not wish for mental health eval. These coins certainly could be external, but again I find it difficult to reconcile why they are on the films. Overall the patient appears well for discharge home. She does have an appointment in about 16 hours with her primary care physician, and I requested that she keep that appointment. I do feel it is appropriate for her to have a repeat x-ray. Her symptoms could be musculoskeletal in etiology, but may also represent GERD/PUD. This is especially true if the patient is ingesting coins or other non-food items. Patient was educated on eating a bland diet and drinking lots of liquids. The patient was certainly invited back to the ER with any new, worsening, or concerning symptoms. The chart was completed utilizing [employer] Speech Voice Recognition Software. Grammatical errors, random word insertions, pronoun errors, and incomplete sentences are an occasional consequence of this system due to software limitations, ambient noise, and hardware issues. Any formal questions or concerns about the content, text, or information contained within the body of this dictation should be directly addressed to the provider for clarification. . Medical Decision Differential diagnosis: Etiologies such as appendicitis, diverticulitis, PUD, biliary pathology, UTI, pancreatitis, obstruction, mesenteric ischemia, aortic pathology, infections, inflammatory bowel disease, renal colic, as well as others were entertained. Impression Primary Impression: Left sided abdominal pain Departure Information Dispostion Home / Self-Care Condition GOOD Forms Call Back Authorization, HOME CARE DOCUMENTATION FORM, IMPORTANT VISIT INFORMATION Patient Instructions My [facility] Additional Instructions You were seen and evaluated today on an emergency basis only. This is not a substitute for, or an effort to provide, complete comprehensive medical care. It is not possible to recognize and treat all injuries or illnesses in a single emergency department visit. For this reason it is recommended that you followup with your primary care physician's office as scheduled tomorrow for recheck of your condition. Drink plenty of fluids and remain well hydrated. Eat a very simple diet until seen by your primary care physician. We recommend you have a repeat x-ray tomorrow of your belly. You had 2 coin- like metallic foreign bodies on your xray today. You are welcome to return to the emergency department anytime with new, worsening, or concerning symptoms.
== END 2017-09-13 15:35 | disposition home or self-care (01) ==
LOC: C.EDB 13:11 → C.EDC 15:35
DX: R10.9 Unspecified abdominal pain (principal); E11.9 Type 2 diabetes mellitus without complications; E03.9 Hypothyroidism, unspecified; F32.9 Major depressive disorder, single episode, unspecified; Z79.899 Other long term (current) drug therapy; Z88.5 Allergy status to narcotic agent; Z83.3 Family history of diabetes mellitus

== ENCOUNTER 2017-10-12 20:47 | Emergency (ER) | payer OTHER ==
[~2017-10-12] VITALS: Ht 154.9 cm; Wt 96.3 kg
[2017-10-12 20:49] VITALS: TEMP 36.5; Ht 154.9 cm; Wt 96.3 kg
[2017-10-12] MEDS ORDERED: KETOROLAC TROMETHAMINE 30 MG/ML VIAL IV STA (21:12)
--- NOTE | 2017-10-12 21:18 | EMERGENCY ROOM VISIT NOTE ---
History Report prepared by Kevin: Mayuri Zhang Under the Supervision of: Dr. Amando Davis M.D. First contact with patient: 21:05 Chief Complaint: ABDOMINAL PAIN Stated Complaint: ABD PAIN History of Present Illness The patient is a 32 year old female who presents to the Emergency Room with complaints of constant abdominal pain beginning a week ago. She states her pain is on both sides of her upper abdomen. The patient notes she has had normal bowel movements. She notes nausea but denies any vomiting, fever, chest pain, shortness of breath, black or bloody stools. The patient denies any chance of . The patient has no history of abdominal surgeries. On September 13 the patient had a normal ultrasound of her kidneys and on September [address] she [address] normal [address] scan. The patient has a history of depression and states she has been doing well mentally. Associated Symptoms: + nausea, No chest pain, No SOB, No vomiting Review of Systems See HPI for pertinent positives & negatives. A total of 10 systems reviewed and were otherwise negative. Past Medical & Surgical Medical Problems: (1) Carpal tunnel syndrome (2) Chest pain (3) Chest pain (4) Chest pain (5) Chest pain (6) Depression (7) Diab Vilma Wo Compl, Type Ii Or Unspec Type, Not Uncntrld (8) Hypothyroidism (9) Migraine Unspecified W/O Intractable Migraine Old medical records were reviewed. Nurse's notes were reviewed and I agree with. Family History Diabetes mellitus Social History Smoking Status: Never Smoker Alcohol Use: none Marital Status: Housing Status: lives with significant other Occupation Status: unemployed Current/Historical Medications Scheduled Atorvastatin (Lipitor), 10 MG PO DAILY Fluoxetine (Prozac), 40 MG PO QAM Gabapentin (Neurontin), 600 MG PO TID Levothyroxine Sodium (Synthroid), 50 MCG PO DAILY Mirtazapine (Remeron), 15 MG PO HS Quetiapine Fumarate (Seroquel), 50 MG PO HS Topiramate (Topamax), 200 MG PO BID Scheduled PRN Cyclobenzaprine Hcl (Flexeril), 10 MG PO HS PRN for Muscle Spasms Dicyclomine Hcl (Dicyclomine Hcl), 10 MG PO QID PRN for Cramping Ondansetron Hcl (Zofran), 4 MG PO Q6 PRN for Nausea Allergies Coded Allergies: Morphine (Verified Adverse Reaction, Unknown, dizzy and feels like fainting, 10/12/17) Physical Exam Vital Signs Date Time Temp Pulse Resp B/P (MAP) Pulse Ox O2 Delivery O2 Flow Rate FiO2 10/12/17 22:00 81 20 130/83 98 10/12/17 20:49 36.5 91 20 118/71 98 Room Air Physical Exam General: Non-ill appearing middle aged female in no acute distress. HEENT: Normal cephalic atraumatic. Pupils are equal round and reactive to light. Extraocular movements are intact. Oropharynx is edentulous No swelling of the mouth lips or tongue. Neck: Supple with a midline trachea. No meningeal signs or stiffness, no JVD or bruits. No Stridor. Chest: Clear to auscultation bilaterally. No wheezes or rhonchi. No increased work of breathing. Heart: regular rate and rhythm. Abdomen: Diffusely tender to upper abdomen, nondistended without rebound guarding or rigidity. Extremities: No cyanosis clubbing or edema. No calf tenderness or assymetry Spine/Back. Non tender to palpation. No CVA tenderness Skin: Good turgor without rashes. Neurologic exam: Cranial nerves two through 12 are intact. Motor and sensation are intact and symmetrical throughout. Medical Decision & Procedures ER Provider Diagnostic Interpretation: Radiology results as stated below per my review and radiologist interpretation: ABDOMINAL ULTRASOUND, RIGHT UPPER QUADRANT FINDINGS: This exam is moderately compromised by suboptimal penetration. No hepatic lesions are identified and there is no biliary ductal dilatation. Gallbladder is contracted. No gallstones are identified. Pancreatic body is normal. Head and tail are partially obscured. There is no right hydronephrosis. IMPRESSION: 1. No gallstones or biliary ductal dilatation. 2. Partially obscured pancreas. Study mildly compromised by suboptimal penetration. Electronically signed by: Anthony Blackwood M.D. Laboratory Results 10/12/17 21:22 Red Blood Count 3.93, Mean Corpuscular Volume 93.4, Mean Corpuscular Hemoglobin 32.6, Mean Corpuscular Hemoglobin Concent 34.9, Mean Platelet Volume 8.9, Neutrophils (%) (Auto) 62.4, Lymphocytes (%) (Auto) 28.7, Monocytes (%) (Auto) 6.8, Eosinophils (%) (Auto) 1.4, Basophils (%) (Auto) 0.3, Neutrophils # (Auto) 7.70, Lymphocytes # (Auto) 3.54, Monocytes # (Auto) 0.84, Eosinophils # (Auto) 0.17, Basophils # (Auto) 0.04 10/12/17 21:22 Test 10/12/17 21:00 10/12/17 21:22 Urine Test NEG (NEG) White Blood Count 12.34 K/uL (4.8-10.8) Red Blood Count 3.93 M/uL (4.2-5.4) Hemoglobin 12.8 g/dL (12.0-16.0) Hematocrit 36.7 % (37-47) Mean Corpuscular Volume 93.4 fL (80-100) Mean Corpuscular Hemoglobin 32.6 pg (25-34) Mean Corpuscular Hemoglobin Concent 34.9 g/dl (32-36) Platelet Count 290 K/uL (130-400) Mean Platelet Volume 8.9 fL (7.4-10.4) Neutrophils (%) (Auto) 62.4 % Lymphocytes (%) (Auto) 28.7 % Monocytes (%) (Auto) 6.8 % Eosinophils (%) (Auto) 1.4 % Basophils (%) (Auto) 0.3 % Neutrophils # (Auto) 7.70 K/uL (1.4-6.5) Lymphocytes # (Auto) 3.54 K/uL (1.2-3.4) Monocytes # (Auto) 0.84 K/uL (0.11-0.59) Eosinophils # (Auto) 0.17 K/uL (0-0.5) Basophils # (Auto) 0.04 K/uL (0-0.2) RDW Standard Deviation 44.6 fL (36.4-46.3) RDW Coefficient of Variation 13.0 % (11.5-14.5) Immature Granulocyte % (Auto) 0.4 % Immature Granulocyte # (Auto) 0.05 K/uL (0.00-0.02) Anion Gap 11.0 mmol/L (3-11) Est Creatinine Clear Calc Drug Dose 119.5 ml/min Estimated GFR () 129.7 Estimated GFR (Non- 111.9 BUN/Creatinine Ratio 12.9 (10-20) Calcium Level 9.1 mg/dl (8.5-10.1) Total Bilirubin 0.1 mg/dl (0.2-1) Direct Bilirubin < 0.1 mg/dl (0-0.2) Aspartate Amino Transf (AST/SGOT) 14 U/L (15-37) Alanine Aminotransferase (ALT/SGPT) 20 U/L (12-78) Alkaline Phosphatase 131 U/L (45-117) Total Protein 7.3 gm/dl (6.4-8.2) Albumin 3.2 gm/dl (3.4-5.0) Lipase 121 U/L (73-393) Laboratory studies as stated above per my review. Medications Administered Medications (Trade) Dose Ordered Sig/Nayla Route Start Time Stop Time Status Last Admin Dose Admin Ketorolac Tromethamine (Toradol Inj) 30 mg NOW STAT IV 10/12/17 21:12 10/12/17 21:14 DC 10/12/17 21:23 30 MG Oxycodone HCl (Roxicodone Immediate Rel 5MG Home Pack) 1 homepack UD ONCE PO 10/12/17 23:15 10/12/17 23:16 DC 10/12/17 23:15 1 HOMEPACK ED Course 2105: Past medical records reviewed. The patient was evaluated in room B9, and a complete history and physical examination were performed. 2128: The patient is on her way to ultrasound. 2111: Ordered Toradol Inj 30 mg IV. 4: I checked on the patient she is resting comfortably. 5: Ordered Oxycodone HCl 1 homepack PO. 2322: Upon reevaluation, the patient is resting comfortably. I discussed the results and treatment plan with her. She verbalized agreement of the treatment plan. The patient was discharged home. Medical Decision Differential diagnoses: Gall bladder disease, colitis, UTI, , pancreatitis, electrolyte or metabolic abnormality. This patient comes in as described above. She was placed in room B9. She is complaining of diffuse abdominal pains most in the upper abdomen more so on the right she's had no trauma. She's been seen here several times for this before and a CAT scan a month ago which was normal talk in the patient and her family this with for a long time she's been scoped in the past she's also had a HIDA scan and a gastric emptying study in the past as well. She looks well on exam her abdomen is minimally tender. She has no peritonitis. She's been afebrile. She's had no trauma. She has no pulmonary or cardiac symptoms. IV access established and she was given IV Toradol she seemed be doing better with that she still having some mild pain. White count was minimally elevated. She has no significant anemia. She has nothing to suggest liver or gallbladder or pancreas disease. Her gallbladder ultrasound was unremarkable. She has nothing to suggest UTI. She is not . I think this is acute exacerbation of chronic pain and I do not feel the need to do another CAT scan and at this point as she's had multiple the past and I do not want subject her to further radiation. There is nothing to suggest acute surgical infectious process. I will give her home pack of OxyIR that she can use for severe pain but primarily just use [id number] acetaminophen but do not exceed the over -the-counter recommended dosages. If she does use the OxyIR , she should be careful after using and do not take before drinking, driving, working and be careful when getting up and down. I encouraged her follow up closely with her doctor Saturday and she may need GI specialist follow-up. She should return to ER in the meantime if: increasing pain, worsening of symptoms, fever or chills, any new problems or concerns. She was happy with plan and discharged to home. Blood Pressure Screening Patient's blood pressure: Normal blood pressure Impression Primary Impression: Diffuse abdominal pain Scribe Attestation The scribe's documentation has been prepared under my direction and personally reviewed by me in its entirety. I confirm that the note above accurately reflects all work, treatment, procedures, and medical decision making performed by me. Departure Information Dispostion Home / Self-Care Referrals Lan Braxton M.D. (PCP) Forms Call Back Authorization, HOME CARE DOCUMENTATION FORM, IMPORTANT VISIT INFORMATION Patient Instructions My [facility] Additional Instructions Rest. Drink plenty of fluids. Mild diet. Use [id number] acetaminophen/Tylenol a maximum of 2 pills every 6 hours Do not take with any other medications that contain acetaminophen/Tylenol For severe pain, may use OxyIR 5 mg -1 pill every 6 hours OxyIR may make you drowsy and do not take before drinking, driving, working Be very careful after taking and be careful getting up and down Return if: Increasing pain, worsening of symptoms, fever or chills, any new problems or concerns Follow up with your doctor this week for recheck, you may ultimately need to see a GI specialist
[2017-10-12 21:34] LABS: BASO % 0.3 %; BASO ABS # 0.04 K/uL (0-0.2); COMPLETE YES; EOS % 1.4 %; HEMATOCRIT 36.7 % (37-47); IG% 0.4 %; LYMPH % 28.7 %; LYMPH ABS # 3.54 K/uL (1.2-3.4); MEAN CELL VOLUME 93.4 fL (80-100); MEAN CORPUSCULAR HEMOGLOBIN 32.6 pg (25-34); MEAN CORPUSCULAR HGB CONC 34.9 g/dl (32-36); MEAN PLATELET VOLUME 8.9 fL (7.4-10.4); MONO % 6.8 %; NEUT % 62.4 %; PLATELET COUNT 290 K/uL (130-400); RED BLOOD COUNT 3.93 M/uL (4.2-5.4); WHITE BLOOD COUNT 12.34 K/uL (4.8-10.8)
[2017-10-12 21:50] LABS: ALT/SGPT 20 U/L (12-78); BLOOD UREA NITROGEN 9 mg/dl (7-18); BUN/CREATININE RATIO 12.9 (10-20); CALCIUM 9.1 mg/dl (8.5-10.1); CARBON DIOXIDE 22 mmol/L (21-32); CHLORIDE 106 mmol/L (98-107); CREATININE 0.71 mg/dl (0.60-1.20); GLUCOSE 118 mg/dl (70-99); POTASSIUM 3.8 mmol/L (3.5-5.1); SODIUM 140 mmol/L (136-145)
[2017-10-12 21:53] LABS: ALKALINE PHOSPHATASE 131 U/L (45-117); AST/SGOT 14 U/L (15-37)
[2017-10-12 22:00] VITALS: BP 130/83; PULSE 81; O2SAT 98
--- NOTE | 2017-10-12 22:05 | DIAGNOSTIC IMAGING REPORT ---
ABDOMINAL ULTRASOUND, RIGHT UPPER QUADRANT HISTORY: Abdominal pain. COMPARISON: Abdominal ultrasound April 18, [address] of the abdomen and pelvis September 10, 2017. FINDINGS: This exam is moderately compromised by suboptimal penetration. No hepatic lesions are identified and there is no biliary ductal dilatation. Gallbladder is contracted. No gallstones are identified. Pancreatic body is normal. Head and tail are partially obscured. There is no right hydronephrosis. IMPRESSION: 1. No gallstones or biliary ductal dilatation. 2. Partially obscured pancreas. Study mildly compromised by suboptimal penetration. Electronically signed by: Anthony Blackwood M.D. 10/12/2017 10:03 PM Dictated Date/Time: 10/12/2017 10:02 PM
[2017-10-12] MEDS ORDERED: OXYCODONE IR HOME PACK PO ONE (23:15)
== END 2017-10-12 23:20 | disposition home or self-care (01) ==
LOC: C.EDB 20:48
DX: R10.9 Unspecified abdominal pain (principal); R11.0 Nausea; E11.9 Type 2 diabetes mellitus without complications; E03.9 Hypothyroidism, unspecified; Z79.899 Other long term (current) drug therapy; Z83.3 Family history of diabetes mellitus

== ENCOUNTER 2017-10-28 17:58 | Emergency (ER) | payer OTHER ==
[~2017-10-28] VITALS: Ht 154.9 cm; Wt 98.7 kg
[2017-10-28 18:01] VITALS: TEMP 36.3; Ht 154.9 cm; Wt 98.7 kg
[2017-10-28] MEDS ORDERED: ACETAMINOPHEN 500 MG TAB PO STA (18:11)
[2017-10-28] MEDS ORDERED: GI COCKTAIL PO STA (18:11)
[2017-10-28] MEDS ORDERED: FAMOTIDINE 20 MG TAB PO ONE (18:15)
[2017-10-28] MEDS ORDERED: DICYCLOMINE HCL 10 MG CAP PO ONE (18:15)
--- NOTE | 2017-10-28 18:54 | EMERGENCY ROOM VISIT NOTE ---
History Report prepared by Kevin: Rose Sosa Under the Supervision of: Dr. Abdiel Rodríguez M.D. First contact with patient: 18:03 Chief Complaint: ABDOMINAL PAIN Stated Complaint: ABD PAIN History of Present Illness The patient is a 32 year old white female with a past medical history of depression, hypothyroidism, migraines who presents to the ED with a cc of constant sharp burning abdominal pain beginning a couple weeks ago. The pain is across her lower abdomen. The pain worsens with eating. Positive lower back pain with urination. Negative nausea, vomiting, change in bowel movement. She has been seen in the ED before and has had a negative CT, gallbladder US, renal US, and X-rays. The patient had an EGD today which found some gastritis. She was started on Diflucan for esophagitis. She denies any recent travel or sick contacts. LNMP was last week. Last BM was this morning. Source of History: patient Onset: couple weeks ago Position: abdomen (lower) Quality: burning, sharp Timing: constant Modifying Factors (Worsening): eating Associated Symptoms: + back pain, No nausea, No vomiting Note: Pt denies change in bowel movement. Review of Systems See HPI for pertinent positives and negatives. A total of ten systems were reviewed and were otherwise negative. Past Medical & Surgical Medical Problems: (1) Carpal tunnel syndrome (2) Chest pain (3) Chest pain (4) Chest pain (5) Chest pain (6) Depression (7) Diab Vilma Wo Compl, Type Ii Or Unspec Type, Not Uncntrld (8) Hypothyroidism (9) Migraine Unspecified W/O Intractable Migraine Family History Diabetes mellitus Social History Smoking Status: Current Every Day Smoker Alcohol Use: none Marital Status: Housing Status: lives with significant other Occupation Status: unemployed Current/Historical Medications Scheduled Atorvastatin (Lipitor), 10 MG PO DAILY Esomeprazole Magnesium (Nexium), 40 MG PO DAILY Fluoxetine (Prozac), 40 MG PO QAM Gabapentin (Neurontin), 300 MG PO TID Levothyroxine Sodium (Synthroid), 50 MCG PO DAILY Mirtazapine (Remeron), 15 MG PO HS Quetiapine Fumarate (Seroquel), 50 MG PO HS Sucralfate (Carafate), 10 ML PO BID Topiramate (Topamax), 200 MG PO BID Scheduled PRN Cyclobenzaprine Hcl (Flexeril), 10 MG PO HS PRN for Muscle Spasms Dicyclomine Hcl (Dicyclomine Hcl), 10 MG PO QID PRN for Cramping Ondansetron Hcl (Zofran), 4 MG PO Q6 PRN for Nausea Allergies Coded Allergies: Morphine (Verified Adverse Reaction, Unknown, dizzy and feels like fainting, 10/28/17) Physical Exam Vital Signs Date Time Temp Pulse Resp B/P (MAP) Pulse Ox O2 Delivery O2 Flow Rate FiO2 10/28/17 20:29 16 140/88 98 10/28/17 19:35 81 10/28/17 19:34 77 18 140/88 98 Room Air 10/28/17 18:01 36.3 84 22 132/89 98 Room Air Physical Exam GENERAL: Obese. Awake, alert, well-appearing, NAD HENT: Normocephalic, atraumatic. EYES: Normal conjunctiva. Sclera non-icteric. NECK: Supple. No nuchal rigidity. FROM. RESPIRATORY: CTAB, no rhonchi, wheezing, crackles CARDIAC: RRR, no MRG ABDOMEN: Soft, NTND, BS+. 2 small excoriations to the abdomen, no purulent drainage, no fluctuance, mild erythema. MSK: No chest wall TTP, no LE edema NEURO: GCS 15, CN 2-12 intact, moves all 4s on command SKIN: No rash or jaundice noted. Medical Decision & Procedures Laboratory Results 10/28/17 18:45 Red Blood Count 3.95, Mean Corpuscular Volume 92.9, Mean Corpuscular Hemoglobin 32.4, Mean Corpuscular Hemoglobin Concent 34.9, Mean Platelet Volume 9.2, Neutrophils (%) (Auto) 65.6, Lymphocytes (%) (Auto) 26.6, Monocytes (%) (Auto) 6.5, Eosinophils (%) (Auto) 0.7, Basophils (%) (Auto) 0.3, Neutrophils # (Auto) 6.32, Lymphocytes # (Auto) 2.56, Monocytes # (Auto) 0.63, Eosinophils # (Auto) 0.07, Basophils # (Auto) 0.03 10/28/17 18:45 Test 10/28/17 18:45 White Blood Count 9.64 K/uL (4.8-10.8) Red Blood Count 3.95 M/uL (4.2-5.4) Hemoglobin 12.8 g/dL (12.0-16.0) Hematocrit 36.7 % (37-47) Mean Corpuscular Volume 92.9 fL (80-100) Mean Corpuscular Hemoglobin 32.4 pg (25-34) Mean Corpuscular Hemoglobin Concent 34.9 g/dl (32-36) Platelet Count 266 K/uL (130-400) Mean Platelet Volume 9.2 fL (7.4-10.4) Neutrophils (%) (Auto) 65.6 % Lymphocytes (%) (Auto) 26.6 % Monocytes (%) (Auto) 6.5 % Eosinophils (%) (Auto) 0.7 % Basophils (%) (Auto) 0.3 % Neutrophils # (Auto) 6.32 K/uL (1.4-6.5) Lymphocytes # (Auto) 2.56 K/uL (1.2-3.4) Monocytes # (Auto) 0.63 K/uL (0.11-0.59) Eosinophils # (Auto) 0.07 K/uL (0-0.5) Basophils # (Auto) 0.03 K/uL (0-0.2) RDW Standard Deviation 43.7 fL (36.4-46.3) RDW Coefficient of Variation 12.9 % (11.5-14.5) Immature Granulocyte % (Auto) 0.3 % Immature Granulocyte # (Auto) 0.03 K/uL (0.00-0.02) Urine Color YELLOW Urine Appearance CLOUDY (CLEAR) Urine pH 6.5 (4.5-7.5) Urine Specific [place] 1.016 (1.000-1.030) Urine Protein NEG (NEG) Urine Glucose (UA) NEG (NEG) Urine Ketones NEG (NEG) Urine Occult Blood NEG (NEG) Urine Nitrite NEG (NEG) Urine Bilirubin NEG (NEG) Urine Urobilinogen NEG (NEG) Urine Leukocyte Esterase LARGE (NEG) Urine WBC (Auto) >30 /hpf (0-5) Urine RBC (Auto) 0-4 /hpf (0-4) Urine Hyaline Casts (Auto) 1-5 /lpf (0-5) Urine Epithelial Cells (Auto) >30 /lpf (0-5) Urine Bacteria (Auto) 2+ (NEG) Urine Test NEG (NEG) Anion Gap 4.0 mmol/L (3-11) Est Creatinine Clear Calc Drug Dose 128.5 ml/min Estimated GFR () 133.9 Estimated GFR (Non- 115.5 BUN/Creatinine Ratio 19.8 (10-20) Calcium Level 8.5 mg/dl (8.5-10.1) Total Bilirubin 0.2 mg/dl (0.2-1) Direct Bilirubin mg/dl (0-0.2) Aspartate Amino Transf (AST/SGOT) U/L (15-37) Alanine Aminotransferase (ALT/SGPT) 25 U/L (12-78) Alkaline Phosphatase 126 U/L (45-117) Total Protein 6.8 gm/dl (6.4-8.2) Albumin 3.0 gm/dl (3.4-5.0) Lipase 119 U/L (73-393) Laboratory results reviewed by me Medications Administered Medications (Trade) Dose Ordered Sig/Nayla Route Start Time Stop Time Status Last Admin Dose Admin Acetaminophen (Tylenol Tab) 1,000 mg NOW STAT PO 10/28/17 18:11 10/28/17 18:13 DC 10/28/17 19:26 1,000 MG Dicyclomine HCl (Bentyl Cap) 10 mg NOW ONCE PO 10/28/17 18:15 10/28/17 18:16 DC 10/28/17 19:26 10 MG Famotidine (Pepcid Tab) 20 mg NOW ONCE PO 10/28/17 18:15 10/28/17 18:16 DC 10/28/17 19:25 20 MG Al Hydroxide/Mg Hydroxide (Maalox Susp) 30 ml STK-MED ONCE .ROUTE 10/28/17 19:23 10/28/17 19:24 DC 10/28/17 19:26 30 ML Lidocaine HCl (Viscous Lidocaine 2% Soln) 20 ml STK-MED ONCE .ROUTE 10/28/17 19:23 10/28/17 19:24 DC 10/28/17 19:26 20 ML ED Course 1804: The patient was evaluated in room B5. A complete history and physical exam was performed. 2019: I reevaluated the patient. Discussed results and discharge instructions: She verbalized understanding and agreement. The patient is ready for discharge. Medical Decision The patient is a 32 year old white female with a past medical history of depression, hypothyroidism, migraines who presents to the ED with a cc of constant sharp burning abdominal pain beginning a couple weeks ago. Differential diagnosis: Etiologies such as appendicitis, diverticulitis, PUD, biliary pathology, UTI, pancreatitis, obstruction, mesenteric ischemia, aortic pathology, infections, inflammatory bowel disease, renal colic, as well as others were entertained. Patient was seen and evaluated the bedside. Patient is a 32-year-old who has had multiple workups for abdominal pain. Patient has had a recent gallbladder ultrasound, renal ultrasound, plain films of the abdomen and chest, and CT the abdomen pelvis that of been fairly inconclusive. Of note the patient had an EGD that was completed today which did show some gastritis and esophagitis. Patient was told to take Diflucan for the next 3 weeks. Patient has a fairly soft and nontender abdomen. Patient did have blood work that was completed along with a urinalysis and UPT. Patient was given medications. Patient felt mildly improved. Labs were hemolyzed at this time. Patient did have mild elevations in her alkaline phosphatase however this is chronic. White blood cell count 9. Patient was deemed suitable for outpatient follow-up and treatment. This appears to be chronic patient as the patient has had multiple studies completed. Given that she has a fairly benign exam with fairly normal blood work I believe she suitable for outpatient follow-up and treatment. Patient was prescribed a PPI as she does have an element of gastritis. She was also given Carafate. Patient was told to continue to follow-up with her PCP. Patient was amenable to this plan. Patient was given strict follow-up, discharge , and return precautions. All questions were answered. Patient was deemed suitable for outpatient follow-up at this time. Patient agreed with the plan of care and was safely discharged home. Medication Reconcilliation Current Medication List: was personally reviewed by me Blood Pressure Screening Patient's blood pressure: Elevated blood pressure Blood pressure disposition: Referred to PCP Impression Primary Impression: Gastritis Scribe Attestation The scribe's documentation has been prepared under my direction and personally reviewed by me in its entirety. I confirm that the note above accurately reflects all work, treatment, procedures, and medical decision making performed by me. Departure Information Dispostion Home / Self-Care Prescriptions Esomeprazole Magnesium (NEXIUM) 40 Mg Cap 40 MG PO DAILY for 30 Days, #30 CAP Prov: Abdiel Rodríguez M.D. 10/28/17 Sucralfate (CARAFATE) 1 Gm/10 Ml Emilia 10 ML PO BID for 6 Days, #120 ML 1 Refill Prov: Abdiel Rodríguez M.D. 10/28/17 Referrals Lan Braxton M.D. (PCP) Patient Instructions ED PUD Vs Gastritis, My [facility] Additional Instructions Please return to the emergency department if you have worsening or recurrent symptoms not amenable to at-home treatment. Please call for a follow-up appointment with her primary care physician. Please take your medications as prescribed. If you have other concerns and/or complaints please feel free to also call your primary care physician's office or return the ED for further evaluation, management, and treatment. Avoid NSAIDs . You may take tylenol 1000 mg every 6 hours as needed for pain. Also take your medications as prescribed. Please consider eating smaller meals and avoiding things like alcohol, tobacco, spicy or citrus foods or drinks. Take your medications as prescribed. If you do take the sucralfate please do not take it with her thyroid medicine as it may not be absorbed as readily. You have been examined and treated today on an emergency basis only. This is not a substitute for, or an effort to provide, complete comprehensive medical care. It is impossible to recognize and treat all injuries or illnesses in a single emergency department visit. It is therefore important that you follow up closely with [facility], your PCP, and/or your specialist(s). Call as soon as possible for an appointment. Thank you for your time and consideration. I look forward to speaking with you again soon. Please don't hesitate to call us if you have any questions. Problem Qualifiers Primary Impression: Gastritis Gastritis type: unspecified gastritis Chronicity: unspecified Gastritis bleeding: presence of bleeding unspecified Qualified Codes: K29.70 - Gastritis, unspecified, without bleeding
[2017-10-28 18:56] LABS: BASO % 0.3 %; BASO ABS # 0.03 K/uL (0-0.2); COMPLETE YES; EOS % 0.7 %; HEMATOCRIT 36.7 % (37-47); IG% 0.3 %; LYMPH % 26.6 %; LYMPH ABS # 2.56 K/uL (1.2-3.4); MEAN CELL VOLUME 92.9 fL (80-100); MEAN CORPUSCULAR HEMOGLOBIN 32.4 pg (25-34); MEAN CORPUSCULAR HGB CONC 34.9 g/dl (32-36); MEAN PLATELET VOLUME 9.2 fL (7.4-10.4); MONO % 6.5 %; NEUT % 65.6 %; PLATELET COUNT 266 K/uL (130-400); RED BLOOD COUNT 3.95 M/uL (4.2-5.4); WHITE BLOOD COUNT 9.64 K/uL (4.8-10.8)
[2017-10-28] MEDS ORDERED: ALUMINUM/MAGNESIUM SUSP 30 ML UDC ONE (19:23)
[2017-10-28] MEDS ORDERED: LIDOCAINE HCL 2% VISC SOLN 20 ML UDC ONE (19:23)
[2017-10-28 19:28] LABS: URINE APPEARANCE CLOUDY (CLEAR); URINE BILIRUBIN NEG (NEG); URINE COLOR YELLOW; URINE EPITHELIAL CELL AUTO >30 /lpf (0-5); URINE NITRITE NEG (NEG); URINE PH 6.5 (4.5-7.5); URINE SPECIFIC GRAVITY 1.016 (1.000-1.030); UROBILINOGEN NEG (NEG); ZZUR CULT IF INDIC CLEAN CATCH YES
[2017-10-28 19:34] LABS: ALKALINE PHOSPHATASE 126 U/L (45-117); ALT/SGPT 25 U/L (12-78); BLOOD UREA NITROGEN 13 mg/dl (7-18); BUN/CREATININE RATIO 19.8 (10-20); CALCIUM 8.5 mg/dl (8.5-10.1); CARBON DIOXIDE 24 mmol/L (21-32); CHLORIDE 109 mmol/L (98-107); CREATININE 0.67 mg/dl (0.60-1.20); GLUCOSE 113 mg/dl (70-99); SODIUM 137 mmol/L (136-145)
[2017-10-28 19:35] VITALS: PULSE 81
[2017-10-28 19:41] LABS: MANUAL MICROSCOPIC REQUIRED? NO; REVIEW REQ? NO
[2017-10-28] MEDS ORDERED: NXM/40 PO (19:50)
[2017-10-28] MEDS ORDERED: CRFL PO (19:50)
[2017-10-28 20:29] VITALS: BP 140/88; O2SAT 98
== END 2017-10-28 20:30 | disposition home or self-care (01) ==
LOC: C.EDB 17:59
DX: K29.70 Gastritis, unspecified, without bleeding (principal); F32.9 Major depressive disorder, single episode, unspecified; E03.9 Hypothyroidism, unspecified; G43.909 Migraine, unspecified, not intractable, without status migrainosus; E11.9 Type 2 diabetes mellitus without complications; Z83.3 Family history of diabetes mellitus; F17.210 Nicotine dependence, cigarettes, uncomplicated; Z79.899 Other long term (current) drug therapy

== ENCOUNTER 2017-11-03 14:06 | Emergency (ER) | payer OTHER ==
[~2017-11-03] VITALS: Ht 154.9 cm; Wt 96.0 kg
[~2017-11-03 14:06] MED LIST changes: +CRFL PO; +NXM/40 PO
[2017-11-03 14:08] VITALS: BP 125/90; PULSE 88; TEMP 36.8; O2SAT 100; Ht 154.9 cm; Wt 96.0 kg
[2017-11-03] MEDS ORDERED: CEPH500C PO (14:24)
[2017-11-03] MEDS ORDERED: BACI500O11 TOP (14:24)
--- NOTE | 2017-11-03 14:27 | EMERGENCY ROOM VISIT NOTE ---
ED Visit Note First contact with patient: 14:11 CHIEF COMPLAINT: Rash HISTORY OF PRESENT ILLNESS: This 32-year-old female patient presents to the emergency department, ambulatory, with her , complaining of a rash on bilateral forearms and left foot which started yesterday. The patient states she suddenly noticed the painful rash yesterday. She describes it is painful, itchy, and burning. She states she did not eat or drink much yesterday, has no children or contacts with ill people, and has not recently been sick. The patient states her only activity yesterday was watching TV. She states she did not wear any new or different clothing. The patient denies fever, chills, nausea, or loss of appetite. They deny any URI symptoms. She denies any blistering. The patient has tried nothing. The patient rates the discomfort as 10/10. No change in food, soap, detergents, or other environmental factors. No new medications. No weakness or numbness. REVIEW OF SYSTEMS: A 6 system review of systems was completed with positives and pertinent negatives listed in the HPI. ALLERGIES: Morphine MEDICATIONS: Atorvastatin, Flexeril, dicyclomine, Nexium, Prozac, Neurontin, Synthroid, Remeron, Zofran, Seroquel, Carafate, Topamax PMH: Depression, hypothyroidism, insomnia SOCIAL HISTORY: The patient lives locally with family. She denies drug, alcohol , tobacco use. PHYSICAL EXAM: Vital Signs: Reviewed Nurse's notes, vital signs stable. GENERAL : This is an obese 32-year-old white female, in no acute distress, well- developed, well-nourished. SKIN: There are erythematous patchy areas on the bilateral forearms. These do have a cellulitic appearance to them, however there are thin red lines running horizontally through the cellulitic areas that appear similar to oakley. The wounds are open in the middle and leaking serous fluid, but there is no obvious blisters. The rash on the dorsal aspect of the left foot appears similar to a dermatitis. It is maculopapular and erythematous. There are excoriations noted. There is no drainage or red lines through this rash. Capillary refill less than 2 seconds. EMERGENCY DEPARTMENT COURSE: The patient was seen and evaluated as above. I asked her to go through her entire day yesterday to attempt to determine the possible cause of the rash. The patient states she woke up then watched TV all day. The patient denies oakley or scratching significantly at the wounds multiple times when asked. I do suspect a cellulitis, and did recommend antibiotic treatment at this time. The patient's wounds were bandaged with bacitracin ointment and bandaging. Discharge instructions were reviewed, and the patient was discharged home in good condition. DIFFERENTIAL DIAGNOSIS: Dermatitis, [id number]-trzc-eyy-mouth disease, burn, abuse, candidiasis, cellulitis, abscess, insect bite, malignancy, and others DIAGNOSIS: Rash and nonspecific skin eruption, cellulitis Problem List Medical Problems: (1) Carpal tunnel syndrome Status: Chronic (2) Chest pain Status: Resolved (3) Chest pain Status: Resolved (4) Chest pain Status: Resolved (5) Chest pain Status: Resolved (6) Depression Status: Chronic (7) Diab Vilma Wo Compl, Type Ii Or Unspec Type, Not Uncntrld Status: Chronic (8) Hypothyroidism Status: Chronic (9) Migraine Unspecified W/O Intractable Migraine Status: Chronic Current/Historical Medications Scheduled Atorvastatin (Lipitor), 10 MG PO DAILY Bacitracin (Topical) (Bacitracin), 1 APPLN TOP BID Cephalexin Monohydrate (Keflex), 500 MG PO QID Esomeprazole Magnesium (Nexium), 40 MG PO DAILY Fluoxetine (Prozac), 40 MG PO QAM Gabapentin (Neurontin), 300 MG PO TID Levothyroxine Sodium (Synthroid), 50 MCG PO DAILY Mirtazapine (Remeron), 15 MG PO HS Quetiapine Fumarate (Seroquel), 50 MG PO HS Sucralfate (Carafate), 10 ML PO BID Topiramate (Topamax), 200 MG PO BID Scheduled PRN Cyclobenzaprine Hcl (Flexeril), 10 MG PO HS PRN for Muscle Spasms Dicyclomine Hcl (Dicyclomine Hcl), 10 MG PO QID PRN for Cramping Ondansetron Hcl (Zofran), 4 MG PO Q6 PRN for Nausea Allergies Coded Allergies: Morphine (Verified Adverse Reaction, Unknown, dizzy and feels like fainting, 11/03/17) Vital Signs Date Time Temp Pulse Resp B/P (MAP) Pulse Ox O2 Delivery O2 Flow Rate FiO2 11/03/17 14:08 36.8 88 16 125/90 100 Room Air Departure Information Impression Primary Impression: Cellulitis Additional Impression: Rash and nonspecific skin eruption Dispostion Home / Self-Care Condition GOOD Prescriptions Bacitracin (Topical) (BACITRACIN) 500 Unit/Gm Oin 1 APPLN TOP BID for 7 Days, #30 GM Prov: Vidhi Nolasco PA-C 11/03/17 Cephalexin Monohydrate (Keflex) 500 Mg Cap 500 MG PO QID for 7 Days, #28 CAP Prov: Vidhi Nolacso PA-C 11/03/17 Referrals No Doctor, Assigned (PCP) Patient Instructions ED Dermatitis Non Specific Rash, ED Infec Skin Cellulitis, My [facility] Additional Instructions You were seen in the emergency department stay for a rash. The rashes on your arms do appear to be cellulitic in nature. I do suspect an infection, and as discussed, they do appear similar to oakley. Please be cautious around any hot objects so as not to get burned. Cephalexin(Keflex) 500mg: Take one pill four times daily for 7 days for your skin infection. All antibiotics can cause diarrhea. If this occurs and you feel worse or it does not resolve in 1-2 days follow up with your doctor or return to the Emergency Department as this could be signs of serious underlying problems. Any medication can cause an allergic reaction, stop the pills immediately and return to the ER for rash, hives, breathing difficulties, or swelling. Please keep the wounds clean and dry. You may wash them with soap and water. Please don't score over the wounds, but instead pat them and allow the water to run over them. Once washed and clean, pat the wounds dry. Apply bacitracin ointment to the clean wounds and cover with a bandage twice daily for 7 days. Monitor for worsening signs of infection including spreading redness, pain, abscess formation with pus drainage, fever, chills, nausea, vomiting, or other concerning symptoms. Return to the emergency department if any of these occur. As discussed, you must follow up with your primary care provider in 3-5 days for reevaluation of the wounds. Problem Qualifiers Primary Impression: Cellulitis Site of cellulitis: extremity Site of cellulitis of extremity: upper extremity Laterality: unspecified laterality Qualified Codes: L03.119 - Cellulitis of unspecified part of limb
[2017-11-04] MEDS ORDERED: HYDR1CAP85 PO (20:33)
[2017-11-04] MEDS ORDERED: SUCR1TAB29 PO (20:38)
[2017-11-04] MEDS ORDERED: PANT40TA PO (20:40)
[2017-11-04] MEDS ORDERED: RANI300T2 PO (20:41)
== END 2017-11-03 14:34 | disposition home or self-care (01) ==
LOC: C.EDB 14:07 → C.EDD 14:34
DX: R21 Rash and other nonspecific skin eruption (principal); L03.90 Cellulitis, unspecified; E03.9 Hypothyroidism, unspecified; E11.9 Type 2 diabetes mellitus without complications; F32.9 Major depressive disorder, single episode, unspecified; Z79.899 Other long term (current) drug therapy; Z88.5 Allergy status to narcotic agent

== ENCOUNTER 2017-11-04 19:54 | Emergency (ER) | payer OTHER ==
[~2017-11-04] VITALS: Ht 154.9 cm; Wt 96.9 kg
[~2017-11-04 19:54] MED LIST changes: +BACI500O11 TOP; +CEPH500C PO
[2017-11-04 19:57] VITALS: TEMP 36.7; Ht 154.9 cm; Wt 96.9 kg
[2017-11-04] MEDS ORDERED: hydrOXYzine HCL 25 MG TAB PO STA (20:20)
[2017-11-04] MEDS ORDERED: HYDR1CAP85 PO (20:33)
[2017-11-04] MEDS ORDERED: SUCR1TAB29 PO (20:38)
[2017-11-04] MEDS ORDERED: PANT40TA PO (20:40)
[2017-11-04] MEDS ORDERED: RANI300T2 PO (20:41)
[2017-11-04 20:44] VITALS: BP 121/86; PULSE 78; O2SAT 98
--- NOTE | 2017-11-05 01:19 | EMERGENCY ROOM VISIT NOTE ---
History Report prepared by Kevin: Juliana Iyer Under the Supervision of: Dr. Eli Murdock M.D. First contact with patient: 20:05 Chief Complaint: RASH Stated Complaint: SEVERE INFECTION ON ARMS, BURNING, SPREADING History of Present Illness The patient is a 32 year old female who presents to the Emergency Room with complaints of a worsening rash that began yesterday.The patient states that she was seen in the Emergency Department yesterday and was advised to come back if her symptoms worsened. After the patient left the ED, she noticed her rash was spreading. She notes that she is itchy. The patient states she has been taking her medication with food, noting she has been vomiting every time she eats. The patient denies coming in contact with anyone with similar symptoms. She denies any fevers. The patient notes she had an upper GI recently, which revealed "yeast" in her esophagus. The patient states she had shingles last year. Source of History: patient Onset: yesterday Position: other (global) Quality: other (rash) Timing: worsening Associated Symptoms: + vomiting Review of Systems See HPI for pertinent positives & negatives. A total of 10 systems reviewed and were otherwise negative. Past Medical & Surgical Medical Problems: (1) Carpal tunnel syndrome (2) Chest pain (3) Chest pain (4) Chest pain (5) Chest pain (6) Depression (7) Diab Vilma Wo Compl, Type Ii Or Unspec Type, Not Uncntrld (8) Hypothyroidism (9) Migraine Unspecified W/O Intractable Migraine Family History Diabetes mellitus Social History Smoking Status: Never Smoker Alcohol Use: none Marital Status: Housing Status: lives with significant other Occupation Status: unemployed Current/Historical Medications Scheduled Atorvastatin (Lipitor), 10 MG PO DAILY Bacitracin (Topical) (Bacitracin), 1 APPLN TOP BID Cephalexin Monohydrate (Keflex), 500 MG PO QID Esomeprazole Magnesium (Nexium), 40 MG PO DAILY Fluoxetine (Prozac), 40 MG PO QAM Gabapentin (Neurontin), 300 MG PO TID Levothyroxine Sodium (Synthroid), 50 MCG PO DAILY Mirtazapine (Remeron), 15 MG PO HS Pantoprazole (Protonix), 40 MG PO QAM Quetiapine Fumarate (Seroquel), 50 MG PO HS Ranitidine Hcl (Zantac), 300 MG PO HS Sucralfate (Carafate), 1 GM PO QID Topiramate (Topamax), 200 MG PO BID Scheduled PRN Cyclobenzaprine Hcl (Flexeril), 10 MG PO HS PRN for Muscle Spasms Dicyclomine Hcl (Dicyclomine Hcl), 10 MG PO QID PRN for Cramping Hydroxyzine Pamoate (Vistaril), 25 MG PO q6-8 hrs PRN for itching Ondansetron Hcl (Zofran), 4 MG PO Q6 PRN for Nausea Allergies Coded Allergies: Morphine (Verified Adverse Reaction, Unknown, dizzy and feels like fainting, 11/03/17) Physical Exam Vital Signs Date Time Temp Pulse Resp B/P (MAP) Pulse Ox O2 Delivery O2 Flow Rate FiO2 11/04/17 20:44 78 18 121/86 98 Room Air 11/04/17 19:57 36.7 90 18 131/93 97 Room Air Physical Exam Vital signs reviewed. General: Well-appearing but poorly kempt 32-year-old woman, malodorous HEENT: No scleral icterus, PERRLA, neck supple. Atraumatic. Cardiovascular: Regular rate and rhythm, no extra sounds. Pulmonary: Clear to auscultation bilaterally, normal work of breathing. Abdomen: Soft, obese, nontender, nondistended, positive bowel sounds. Musculoskeletal: Atraumatic. No significant peripheral edema. Neurologic: Patient awake alert and oriented x 3 Skin: Warm, dry. Excoriation with mild cellulitis change to the bilateral forearms and left foot laterally, no lymphadenic streaking, no drainage, no lesions appreciated to web spaces of hands and feet. Medical Decision & Procedures Medications Administered Medications (Trade) Dose Ordered Sig/Nayla Route Start Time Stop Time Status Last Admin Dose Admin Hydroxyzine HCl (Vistaril Tab) 25 mg NOW STAT PO 11/04/17 20:20 11/04/17 20:21 DC 11/04/17 20:29 25 MG ED Course 1907: Past medical records reviewed. The patient was evaluated in room A9. A complete history and physical examination was performed. 1925: Ordered Vistaril Tab 25mg PO. 2049: Upon reevaluation, the patient appeared to have improvement of her symptoms. I discussed findings with her. The patient verbalized agreement of the treatment plan. She was discharged home. Medical Decision Differential diagnosis: Etiologies such as cellulitis, abscess, MRSA infection, DVT, necrotizing fasciitis, dermatitis, drug eruption, as well as others were entertained.. This patient was evaluated and appeared to be in no significant distress. Physical examination reveals excoriated areas to the upper extremities and a small patch to the left foot. There is no evidence of scabies on exam. The patient is poorly kempt and I do suspect personal hygiene please large role in her presentation. Patient was placed on Keflex yesterday and will be advised to continue this treatment. She was given wound care instructions and Vistaril to be used as needed for itching. Patient will follow-up with her PCP this week for reevaluation return to the ER for worsening of symptoms or any medical concerns. Medication Reconcilliation Current Medication List: was personally reviewed by me Blood Pressure Screening Patient's blood pressure: Normal blood pressure Blood pressure disposition: Did not require urgent referral Impression Primary Impression: Cellulitis Additional Impression: Poor personal hygiene Scribe Attestation The scribe's documentation has been prepared under my direction and personally reviewed by me in its entirety. I confirm that the note above accurately reflects all work, treatment, procedures, and medical decision making performed by me. Departure Information Dispostion Home / Self-Care Prescriptions Hydroxyzine Pamoate (VISTARIL) 25 Mg Cap 25 MG PO q6-8 hrs Y for itching, #20 CAP Prov: Eli Murdock M.D. 11/04/17 Referrals No Doctor, Assigned (PCP) Forms HOME CARE DOCUMENTATION FORM, IMPORTANT VISIT INFORMATION, WORK / SCHOOL INSTRUCTIONS Patient Instructions My [facility] Additional Instructions Diagnosis: Cellulitis Please shower this evening with a mild hypoallergenic soap. Please shower every 24-48 hours. Apply antibiotic ointment as prescribed. Continue Keflex 4 times a day. Vistaril 25 mg every 6 hours as needed for itching. Follow-up with your physician in one to 2 days for reevaluation. Return to the ER for worsening of symptoms or any medical concerns. Problem Qualifiers
== END 2017-11-04 20:57 | disposition home or self-care (01) ==
LOC: C.EDB 19:55 → C.EDA 20:57
DX: L03.90 Cellulitis, unspecified (principal); R46.0 Very low level of personal hygiene; E11.9 Type 2 diabetes mellitus without complications; E03.9 Hypothyroidism, unspecified; F32.9 Major depressive disorder, single episode, unspecified; Z79.899 Other long term (current) drug therapy; Z88.5 Allergy status to narcotic agent

== ENCOUNTER 2017-11-19 12:48 | Emergency (ER) | payer OTHER ==
[~2017-11-19] VITALS: Ht 154.9 cm; Wt 89.0 kg
[~2017-11-19 12:48] MED LIST changes: -ATOR10TA82 PO; -BACI500O11 TOP; -CEPH500C PO; -CRFL PO; -CYCL10TA6 PO; -DICY10CA12 PO; -FLUO40CA8 PO; -GABA600T PO; -LEVO50TA PO; -MIRT15TA PO; -ONDA4TAB65 PO; -QUET1TAB32 PO; +SUCR1TAB29 PO; -TOPI200T20 PO
[2017-11-19 12:51] VITALS: TEMP 36.5; Ht 154.9 cm; Wt 89.0 kg
[2017-11-19] MEDS ORDERED: BENZ1CAP90 PO (13:27)
--- NOTE | 2017-11-19 13:27 | EMERGENCY ROOM VISIT NOTE ---
History Report prepared by Kevin: Rolando Thompson Under the Supervision of: Dr. Monster López D.O. First contact with patient: 13:19 Chief Complaint: COUGH Stated Complaint: BAD COUGH History of Present Illness The patient is a 32 year old female who presents to the Emergency Room with complaints of a worsening cough that began two days ago. She states that her symptoms have progressed into some mild centralized chest pain secondary to her cough. She denies any history of asthma or cigarette smoking. She denies any fevers or any other abnormal symptoms. Source of History: patient Onset: two days ago Position: other (Respiratory System) Symptom Intensity: moderate Quality: other (Cough) Timing: worsening Associated Symptoms: + chest pain (Centralized), No fevers Review of Systems See HPI for pertinent positives & negatives. A total of 10 systems reviewed and were otherwise negative. Past Medical & Surgical Medical Problems: (1) Carpal tunnel syndrome (2) Chest pain (3) Chest pain (4) Chest pain (5) Chest pain (6) Depression (7) Diab Vilma Wo Compl, Type Ii Or Unspec Type, Not Uncntrld (8) Hypothyroidism (9) Migraine Unspecified W/O Intractable Migraine Family History Diabetes mellitus Social History Smoking Status: Never Smoker Alcohol Use: none Marital Status: Housing Status: lives with significant other Occupation Status: unemployed Current/Historical Medications Scheduled Atorvastatin (Lipitor), 10 MG PO DAILY Esomeprazole Magnesium (Nexium), 40 MG PO DAILY Fluoxetine (Prozac), 40 MG PO QAM Gabapentin (Neurontin), 300 MG PO TID Levothyroxine Sodium (Synthroid), 50 MCG PO DAILY Mirtazapine (Remeron), 15 MG PO HS Pantoprazole (Protonix), 40 MG PO QAM Quetiapine Fumarate (Seroquel), 50 MG PO HS Ranitidine Hcl (Zantac), 300 MG PO HS Sucralfate (Carafate), 1 GM PO QID Topiramate (Topamax), 200 MG PO BID Scheduled PRN Benzonatate (Tessalon Perles), 200 MG PO Q4H PRN for Cough Cyclobenzaprine Hcl (Flexeril), 10 MG PO HS PRN for Muscle Spasms Dicyclomine Hcl (Dicyclomine Hcl), 10 MG PO QID PRN for Cramping Ondansetron Hcl (Zofran), 4 MG PO Q6 PRN for Nausea Allergies Coded Allergies: Morphine (Verified Adverse Reaction, Unknown, dizzy and feels like fainting, 11/19/17) Physical Exam Vital Signs Date Time Temp Pulse Resp B/P (MAP) Pulse Ox O2 Delivery O2 Flow Rate FiO2 11/19/17 13:37 85 18 131/87 97 11/19/17 12:53 98 Room Air 11/19/17 12:51 36.5 96 20 132/93 97 Room Air Physical Exam CONSTITUTIONAL/VITAL SIGNS: Reviewed / noted above. GENERAL: Non-toxic in appearance. INTEGUMENTARY: Warm, dry, and [place]. HEAD: Normocephalic. EYES: without scleral icterus or trauma. ENT/OROPHARYNX: clear and moist. LYMPHADENOPATHY/NECK: Is supple without lymphadenopathy or meningismus. RESPIRATORY: Lungs clear and equal. CARDIOVASCULAR: Regular rate and rhythm. GI/ABDOMEN: Soft and nontender. No organomegaly or pulsatile mass. No rebound or guarding. Normal bowel sounds. EXTREMITIES: Warm and well perfused. BACK: No CVA tenderness. NEUROLOGICAL: Intact without focal deficits. PSYCHIATRIC: normal affect. MUSCULOSKELETAL: Normally developed with good muscle tone. Medical Decision & Procedures Medications Administered Medications (Trade) Dose Ordered Sig/Nayla Route Start Time Stop Time Status Last Admin Dose Admin Benzonatate (Tessalon Perles Cap) 200 mg NOW ONCE PO 11/19/17 13:30 11/19/17 13:31 DC 11/19/17 13:28 200 MG ED Course 1319: Previous medical records were reviewed. The patient was evaluated in room C12. A complete history and physical examination was performed. 1330: Ordered Benzonatate 200 mg PO 1342: On reevaluation, the patient is resting. I discussed the results and findings with the patient. She verbalized agreement of the treatment plan. She was discharged home. Medical Decision Differentials considered include acute myocardial infarction, acute coronary syndrome, myocarditis, pericarditis, pericardial effusions /tamponade, esophageal perforation, pulmonary embolism, pneumonia, pneumothorax, cardiomyopathy, congestive heart, anemia, and COPD/asthma exacerbation. This is a 32-year-old female who presents to the ED with a chief complaint cough. The patient states that she has had a cough for 2 days. She states that it is nonproductive cough. Patient physical exam is completely normal. She did not cough during her exam. She will be discharged on Tessalon Perles. She was given a dose here. Medication Reconcilliation Current Medication List: was personally reviewed by me Blood Pressure Screening Patient's blood pressure: Elevated blood pressure Blood pressure disposition: Referred to PCP Impression Primary Impression: Acute bronchitis Scribe Attestation The scribe's documentation has been prepared under my direction and personally reviewed by me in its entirety. I confirm that the note above accurately reflects all work, treatment, procedures, and medical decision making performed by me. Departure Information Dispostion Home / Self-Care Prescriptions Benzonatate (Tessalon Perles) 200 Mg Cap 200 MG PO Q4H Y for Cough, #20 CAP Prov: Monster López D.O. 11/19/17 Referrals No Doctor, Assigned (PCP) Forms HOME CARE DOCUMENTATION FORM, IMPORTANT VISIT INFORMATION Patient Instructions My [facility] Additional Instructions Follow-up with your doctor for further care and evaluation in 1-2 days. Return to the emergency department for worsening or new symptoms or any concerns. You have been examined and treated today on an emergency basis only. This is not a substitute for, or an effort to provide, complete comprehensive medical care. It is impossible to recognize and treat all injuries or illnesses in a single emergency department visit. It is therefore important that you follow up closely with your doctor. Call as soon as possible for an appointment. Tessalon Perles as prescribed.
[2017-11-19] MEDS ORDERED: BENZONATATE 100MG CAP PO ONE (13:30)
[2017-11-19 13:37] VITALS: BP 131/87; PULSE 85; O2SAT 97
[2017-12-19] MEDS ORDERED: DICY10CA12 PO (00:15)
[2017-12-19] MEDS ORDERED: ATOR10TA82 PO (00:24)
[2017-12-19] MEDS ORDERED: LEVO50TA PO (09:24)
[2017-12-19] MEDS ORDERED: QUET1TAB32 PO (15:47)
[2017-12-19] MEDS ORDERED: MIRT15TA PO (18:56)
[2017-12-19] MEDS ORDERED: ONDA4TAB65 PO (18:56)
[2017-12-19] MEDS ORDERED: CYCL10TA6 PO (18:56)
[2017-12-19] MEDS ORDERED: FLUO40CA8 PO (18:56)
[2017-12-19] MEDS ORDERED: PANT40TA PO (20:40)
[2017-12-19] MEDS ORDERED: RANI300T2 PO (20:41)
== END 2017-11-19 13:38 | disposition home or self-care (01) ==
LOC: C.EDB 12:48 → C.EDC 13:38
DX: J20.9 Acute bronchitis, unspecified (principal); F32.9 Major depressive disorder, single episode, unspecified; E11.9 Type 2 diabetes mellitus without complications; E03.9 Hypothyroidism, unspecified; Z83.3 Family history of diabetes mellitus; Z79.899 Other long term (current) drug therapy

== ENCOUNTER 2017-11-30 21:57 | Emergency (ER) | payer OTHER ==
[~2017-11-30] VITALS: Ht 154.9 cm; Wt 101.0 kg
[~2017-11-30 21:57] MED LIST changes: +ATOR10TA82 PO; +BENZ1CAP90 PO; +CYCL10TA6 PO; +DICY10CA12 PO; +FLUO40CA8 PO; +GABA600T PO; +LEVO50TA PO; +MIRT15TA PO; -NXM/40 PO; +ONDA4TAB65 PO; +PANT40TA PO; +QUET1TAB32 PO; +RANI300T2 PO; +TOPI200T20 PO
[2017-11-30 21:59] VITALS: TEMP 36.3; Ht 154.9 cm; Wt 101.0 kg
[2017-11-30] MEDS ORDERED: KETOROLAC TROMETHAMINE 60 MG/2 ML VIAL IM STA (22:19)
--- NOTE | 2017-11-30 23:05 | DIAGNOSTIC IMAGING REPORT ---
L-SPINE MIN 4 VIEWS ROUTINE HISTORY: Trauma. Pain. fall. back pain. COMPARISON: None. FINDINGS: There is no fracture. No subluxation. Disc spaces are preserved. IMPRESSION: No fracture or subluxation within the lumbar spine. The above report was generated using voice recognition software. It may contain grammatical, syntax or spelling errors. Electronically signed by: Otoniel Handley M.D. 11/30/2017 11:03 PM Dictated Date/Time: 11/30/2017 11:03 PM
[2017-12-01 00:19] VITALS: BP 110/87; PULSE 79; O2SAT 97
--- NOTE | 2017-12-01 23:06 | EMERGENCY ROOM VISIT NOTE ---
ED Visit Note First contact with patient: 22:10 CHIEF COMPLAINT: Low back pain HISTORY OF PRESENT ILLNESS: This 32-year-old female patient presents to the emergency department complaining of pain in the low back which began yesterday after falling while shoveling snow. The pain was gradual in onset, is now constant and worse with movement. The patient notes the pain as dull and a 8/ 10. The patient has taken nothing with relief of the pain. The patient denies any loss of control of their bowel or bladder functions. There has been no leg numbness or weakness, and no change in sensation. No nausea or vomiting or abdominal pain. No chest pain or shortness of breath. The patient has not had prior back injuries. No dysuria or increased urinary frequency. REVIEW OF SYSTEMS: A review of systems was performed with positives and pertinent negatives listed in the history of present illness. All other systems were reviewed and are negative. ALLERGIES: Morphine MEDICATIONS: See EMR PMH: See EMR SOCIAL HISTORY: Lives locally PHYSICAL EXAM: VITALS: Vitals are noted on the nurse's note and reviewed by myself. Vital signs stable. GENERAL: White female, in no acute distress, nondiaphoretic, well-developed well -nourished. SKIN: The skin was without rashes, erythema, edema, or bruising. Capillary refill less than 2 seconds. NECK: Supple without nuchal rigidity. No cervical spine tenderness. No paraspinous muscle tenderness. HEART: Regular rate and rhythm without murmurs gallops or rubs. LUNGS: Clear to auscultation bilaterally without wheezes, rales or rhonchi. ABDOMEN: Positive bowel sounds x 4. Normal tympanic percussion. Soft, nontender, without masses or organomegaly. Jonas sign negative. MUSCULOSKELETAL: No muscle atrophy, erythema, or edema noted of the back. There is no tenderness over the lumbar spinous processes. There is no tenderness over the paraspinous muscles. There is no tenderness over the thoracic spine or paraspinous muscles. There are no muscle spasms present. The patient is slow to move around with maximum tenderness with flexion. Negative straight leg raise test. NEURO: Patient was alert and oriented to person place and time. Normal sensation to light and sharp touch. Deep tendon reflexes 2+ in the lower extremities. Dorsalis pedis pulse 2+ bilaterally. Strength 5/5 and equal in the bilateral lower extremities. L-SPINE MIN 4 VIEWS ROUTINE HISTORY: Trauma. Pain. fall. back pain. COMPARISON: None. FINDINGS: There is no fracture. No subluxation. Disc spaces are preserved. IMPRESSION: No fracture or subluxation within the lumbar spine. EMERGENCY DEPARTMENT COURSE: Physical examination was performed. Nursing notes and EMR were reviewed. The patient evidently fell and injured her back yesterday. She was given 60 mg IM Toradol here in the department. X-ray was obtained and is without evidence of acute abnormality. Neurologically the patient appears intact and is felt to be stable for discharge home. She did have improvement of her symptoms after the Toradol and may continue over-the- counter analgesics. She is to follow with her primary care physician and was given further discharge instructions as below. Problem List Medical Problems: (1) Carpal tunnel syndrome Status: Chronic (2) Chest pain Status: Resolved (3) Chest pain Status: Resolved (4) Chest pain Status: Resolved (5) Chest pain Status: Resolved (6) Depression Status: Chronic (7) Diab Vilma Wo Compl, Type Ii Or Unspec Type, Not Uncntrld Status: Chronic (8) Hypothyroidism Status: Chronic (9) Migraine Unspecified W/O Intractable Migraine Status: Chronic Current/Historical Medications Scheduled Atorvastatin (Lipitor), 10 MG PO DAILY Fluoxetine (Prozac), 40 MG PO QAM Gabapentin (Neurontin), 300 MG PO TID Levothyroxine Sodium (Synthroid), 50 MCG PO DAILY Mirtazapine (Remeron), 15 MG PO HS Pantoprazole (Protonix), 40 MG PO QAM Quetiapine Fumarate (Seroquel), 50 MG PO HS Ranitidine Hcl (Zantac), 300 MG PO HS Sucralfate (Carafate), 1 GM PO QID Topiramate (Topamax), 200 MG PO BID Scheduled PRN Benzonatate (Tessalon Perles), 200 MG PO Q4H PRN for Cough Cyclobenzaprine Hcl (Flexeril), 10 MG PO HS PRN for Muscle Spasms Dicyclomine Hcl (Dicyclomine Hcl), 10 MG PO QID PRN for Cramping Ondansetron Hcl (Zofran), 4 MG PO Q6 PRN for Nausea Allergies Coded Allergies: Morphine (Verified Adverse Reaction, Unknown, dizzy and feels like fainting, 11/30/17) Vital Signs Date Time Temp Pulse Resp B/P (MAP) Pulse Ox O2 Delivery O2 Flow Rate FiO2 12/01/17 00:19 79 18 110/87 97 11/30/17 23:35 69 18 131/80 99 11/30/17 21:59 36.3 83 18 95 Room Air Medications Administered Medications (Trade) Dose Ordered Sig/Nayla Route Start Time Stop Time Status Last Admin Dose Admin Ketorolac Tromethamine (Toradol Inj) 60 mg NOW STAT IM 11/30/17 22:19 11/30/17 22:20 DC 11/30/17 22:35 60 MG Departure Information Impression Primary Impression: Fall Additional Impression: Back injury Dispostion Home / Self-Care Condition GOOD Forms HOME CARE DOCUMENTATION FORM, IMPORTANT VISIT INFORMATION Patient Instructions My [facility] Additional Instructions You were seen and evaluated today on an emergency basis only. This is not a substitute for, or an effort to provide, complete comprehensive medical care. It is not possible to recognize and treat all injuries or illnesses in a single emergency department visit. For this reason it is recommended that you followup with your primary care physician's week for ongoing care and evaluation. For baseline pain relief you may alternate ibuprofen and acetaminophen every 4 hours for pain control. Take 600 mg ibuprofen (Advil) and then 4 hours later take 1000 mg acetaminophen (Tylenol). Do not take more than 3000 mg acetaminophen in a single day. You are welcome to return to the emergency department anytime with new, worsening, or concerning symptoms. Problem Qualifiers
== END 2017-12-01 00:21 | disposition home or self-care (01) ==
LOC: C.EDB 21:59 → C.EDC 12-01 00:21
DX: S39.92XA Unspecified injury of lower back, initial encounter (principal); W18.39XA Other fall on same level, initial encounter; Y93.H1 Activity, digging, shoveling and raking; Y99.8 Other external cause status; E11.9 Type 2 diabetes mellitus without complications; E03.9 Hypothyroidism, unspecified; F32.9 Major depressive disorder, single episode, unspecified; Z79.899 Other long term (current) drug therapy

== ENCOUNTER 2017-12-19 21:15 | Emergency (ER) | payer OTHER ==
[~2017-12-19] VITALS: Ht 154.9 cm; Wt 99.7 kg
[~2017-12-19 21:15] MED LIST changes: -GABA600T PO; -TOPI200T20 PO
[2017-12-19 21:22] VITALS: TEMP 36.9; Ht 154.9 cm; Wt 99.7 kg
[2017-12-19] MEDS ORDERED: MIRT45TA3 PO (22:42)
[2017-12-19] MEDS ORDERED: TOPI200T20 PO (22:43)
[2017-12-19] MEDS ORDERED: GABA600T PO (22:43)
[2017-12-19] MEDS ORDERED: GI COCKTAIL PO STA (22:49)
[2017-12-19] MEDS ORDERED: DICYCLOMINE HCL 20 MG TAB PO STA (22:49)
[2017-12-19] MEDS ORDERED: ONDANSETRON INJ 2 MG/ML 2 ML VIAL IV STA (22:49)
[2017-12-19] MEDS ORDERED: FAMOTIDINE 20 MG TAB PO ONE (23:00)
[2017-12-19] MEDS ORDERED: LIDOCAINE HCL 2% VISC SOLN 20 ML UDC ONE (23:04)
[2017-12-19] MEDS ORDERED: ALUMINUM/MAGNESIUM SUSP 30 ML UDC ONE (23:04)
[2017-12-19 23:06] LABS: BASO % 0.5 %; BASO ABS # 0.05 K/uL (0-0.2); HEMATOCRIT 39.3 % (37-47); HEMOGLOBIN 13.6 g/dL (12.0-16.0); IG# 0.03 K/uL (0.00-0.02); LYMPH % 32.5 %; LYMPH ABS # 3.17 K/uL (1.2-3.4); MEAN CORPUSCULAR HEMOGLOBIN 31.9 pg (25-34); MEAN CORPUSCULAR HGB CONC 34.6 g/dl (32-36); MEAN PLATELET VOLUME 9.3 fL (7.4-10.4); MONO % 7.1 %; MONO ABS # 0.69 K/uL (0.11-0.59); NEUT % 58.6 %; PLATELET COUNT 297 K/uL (130-400); RED CELL DISTRIBUTION WIDTH CV 12.9 % (11.5-14.5); RED CELL DISTRIBUTION WIDTH SD 43.1 fL (36.4-46.3); WHITE BLOOD COUNT 9.74 K/uL (4.8-10.8)
[2017-12-19 23:15] LABS: ALBUMIN 3.7 gm/dl (3.4-5.0); ALT/SGPT 28 U/L (12-78); AST/SGOT 16 U/L (15-37); BLOOD UREA NITROGEN 11 mg/dl (7-18); CALCIUM 8.7 mg/dl (8.5-10.1); CARBON DIOXIDE 26 mmol/L (21-32); CREATININE 0.67 mg/dl (0.60-1.20); GLUCOSE 93 mg/dl (70-99); LIPASE 121 U/L (73-393); POTASSIUM 3.7 mmol/L (3.5-5.1); SODIUM 138 mmol/L (136-145)
[2017-12-19 23:18] LABS: ALKALINE PHOSPHATASE 132 U/L (45-117); TOTAL PROTEIN 8.1 gm/dl (6.4-8.2)
--- NOTE | 2017-12-19 23:52 | EMERGENCY ROOM VISIT NOTE ---
History Report prepared by Kevin: Kinjal Quick Under the Supervision of: Dr. Abdiel Rodríguez M.D. First contact with patient: 22:23 Chief Complaint: ABDOMINAL PAIN Stated Complaint: ABD PAIN Nursing Triage Summary: Abdominal cramping that began yesterday, +vomiting. Notes small amount of diarrhea. Pain in right side of abdomen, no medication at home for pain. History of Present Illness The patient is a 32 year old female with a past medical history hypothyroidism, depression, and diabetes who presents to the ED with a cc of worsening abdominal pain beginning yesterday. The patient describes it as a cramping. She denies this ever happening before. Positive vomiting and diarrhea. Negative nausea, taking anything for her symptoms, anyone else being sick, recent travel, use of antibiotics, urinary symptoms, and recent falls/ injuries. She notes her LNMP was at the beginning of the month. She notes she had a bowel movement before coming in. Source of History: patient Onset: yesterday Position: abdomen Quality: cramping Timing: worsening Associated Symptoms: + vomiting, + diarrhea, No nausea, No urinary symptoms Review of Systems See HPI for pertinent positives and negatives. A total of ten systems were reviewed and were otherwise negative. Past Medical & Surgical Medical Problems: (1) Carpal tunnel syndrome (2) Chest pain (3) Chest pain (4) Chest pain (5) Chest pain (6) Depression (7) Diab Vilma Wo Compl, Type Ii Or Unspec Type, Not Uncntrld (8) Hypothyroidism (9) Migraine Unspecified W/O Intractable Migraine Family History Diabetes mellitus Social History Smoking Status: Never Smoker Smokeless Tobacco Use: No Alcohol Use: none Drug Use: none Marital Status: Housing Status: lives with significant other Occupation Status: unemployed Current/Historical Medications Scheduled Atorvastatin (Lipitor), 10 MG PO DAILY Fluoxetine (Prozac), 40 MG PO QAM Gabapentin (Neurontin), 600 MG PO TID Levothyroxine Sodium (Synthroid), 50 MCG PO DAILY Mirtazapine (Mirtazapine), 45 MG PO HS Pantoprazole (Protonix), 40 MG PO QAM Quetiapine Fumarate (Seroquel), 50 MG PO HS Ranitidine Hcl (Zantac), 300 MG PO HS Topiramate (Topamax), 200 MG PO BID Scheduled PRN Benzonatate (Tessalon Perles), 200 MG PO Q4H PRN for Cough Cyclobenzaprine Hcl (Flexeril), 10 MG PO HS PRN for Muscle Spasm Dicyclomine Hcl (Dicyclomine Hcl), 10 MG PO QID PRN for Abdominal Cramping Ondansetron Hcl (Zofran), 4 MG PO Q6H PRN for Nausea Allergies Coded Allergies: Morphine (Verified Adverse Reaction, Unknown, dizzy and feels like fainting, 11/30/17) Physical Exam Vital Signs Date Time Temp Pulse Resp B/P (MAP) Pulse Ox O2 Delivery O2 Flow Rate FiO2 12/20/17 01:50 75 18 117/59 95 Room Air 12/19/17 23:57 76 19 115/79 97 12/19/17 23:20 78 12/19/17 23:11 78 19 122/85 97 Room Air 12/19/17 22:12 77 18 122/85 98 Room Air 12/19/17 21:22 36.9 77 18 127/93 98 Room Air Physical Exam GENERAL: Awake, alert, well-appearing, NAD HENT: Normocephalic, atraumatic. Edentulous. EYES: Normal conjunctiva. Sclera non-icteric. NECK: Supple. No nuchal rigidity. FROM. RESPIRATORY: CTAB, no rhonchi, wheezing, crackles CARDIAC: RRR, no MRG ABDOMEN: Soft, nondistended, BS+, mild upper abdominal discomfort. MSK: No chest wall TTP, no LE edema NEURO: GCS 15, CN 2-12 intact, moves all 4s on command SKIN: No rash or jaundice noted. Medical Decision & Procedures ER Provider Diagnostic Interpretation: KUB: The results were interpreted by me. Non obstructive bowel gas pattern. Bony elements intact. Noted dark patch in the right chest believed to be artifact. CHEST X-RAY: The results were interpreted by me. Trachea is midline. Cardiac silhouette is normal in size. Costophrenic angles are well demarcated. No air under the diaphragm. No evidence of effusion or consolidation. Laboratory Results 12/19/17 22:10 Red Blood Count 4.27, Mean Corpuscular Volume 92.0, Mean Corpuscular Hemoglobin 31.9, Mean Corpuscular Hemoglobin Concent 34.6, Mean Platelet Volume 9.3, Neutrophils (%) (Auto) 58.6, Lymphocytes (%) (Auto) 32.5, Monocytes (%) (Auto) 7.1, Eosinophils (%) (Auto) 1.0, Basophils (%) (Auto) 0.5, Neutrophils # (Auto) 5.70, Lymphocytes # (Auto) 3.17, Monocytes # (Auto) 0.69, Eosinophils # (Auto) 0.10, Basophils # (Auto) 0.05 12/19/17 22:10 Test 12/19/17 22:10 White Blood Count 9.74 K/uL (4.8-10.8) Red Blood Count 4.27 M/uL (4.2-5.4) Hemoglobin 13.6 g/dL (12.0-16.0) Hematocrit 39.3 % (37-47) Mean Corpuscular Volume 92.0 fL (80-100) Mean Corpuscular Hemoglobin 31.9 pg (25-34) Mean Corpuscular Hemoglobin Concent 34.6 g/dl (32-36) Platelet Count 297 K/uL (130-400) Mean Platelet Volume 9.3 fL (7.4-10.4) Neutrophils (%) (Auto) 58.6 % Lymphocytes (%) (Auto) 32.5 % Monocytes (%) (Auto) 7.1 % Eosinophils (%) (Auto) 1.0 % Basophils (%) (Auto) 0.5 % Neutrophils # (Auto) 5.70 K/uL (1.4-6.5) Lymphocytes # (Auto) 3.17 K/uL (1.2-3.4) Monocytes # (Auto) 0.69 K/uL (0.11-0.59) Eosinophils # (Auto) 0.10 K/uL (0-0.5) Basophils # (Auto) 0.05 K/uL (0-0.2) RDW Standard Deviation 43.1 fL (36.4-46.3) RDW Coefficient of Variation 12.9 % (11.5-14.5) Immature Granulocyte % (Auto) 0.3 % Immature Granulocyte # (Auto) 0.03 K/uL (0.00-0.02) Urine Color YELLOW Urine Appearance CLEAR (CLEAR) Urine pH 5.0 (4.5-7.5) Urine Specific [place] 1.014 (1.000-1.030) Urine Protein NEG (NEG) Urine Glucose (UA) NEG (NEG) Urine Ketones NEG (NEG) Urine Occult Blood NEG (NEG) Urine Nitrite NEG (NEG) Urine Bilirubin NEG (NEG) Urine Urobilinogen NEG (NEG) Urine Leukocyte Esterase NEG (NEG) Urine Test NEG (NEG) Anion Gap 7.0 mmol/L (3-11) Est Creatinine Clear Calc Drug Dose 129.2 ml/min Estimated GFR () 133.9 Estimated GFR (Non- 115.5 BUN/Creatinine Ratio 16.1 (10-20) Calcium Level 8.7 mg/dl (8.5-10.1) Total Bilirubin 0.4 mg/dl (0.2-1) Direct Bilirubin < 0.1 mg/dl (0-0.2) Aspartate Amino Transf (AST/SGOT) 16 U/L (15-37) Alanine Aminotransferase (ALT/SGPT) 28 U/L (12-78) Alkaline Phosphatase 132 U/L (45-117) Total Protein 8.1 gm/dl (6.4-8.2) Albumin 3.7 gm/dl (3.4-5.0) Lipase 121 U/L (73-393) Laboratory results reviewed by me Medications Administered Medications (Trade) Dose Ordered Sig/Nayla Route Start Time Stop Time Status Last Admin Dose Admin Ondansetron HCl (Zofran Inj) 4 mg NOW STAT IV 12/19/17 22:49 12/19/17 22:52 DC 12/19/17 23:07 4 MG Famotidine (Pepcid Tab) 20 mg NOW ONCE PO 12/19/17 23:00 12/19/17 23:01 DC 12/19/17 23:07 20 MG Miscellaneous Medication (Gi Cocktail) 24 ml ONE STAT PO 12/19/17 22:49 12/19/17 22:52 DC 12/19/17 22:49 24 ML Dicyclomine HCl (Bentyl Tab) 20 mg ONE STAT PO 12/19/17 22:49 12/19/17 22:52 DC 12/19/17 23:07 20 MG Lidocaine HCl (Viscous Lidocaine 2% Soln) 20 ml STK-MED ONCE .ROUTE 12/19/17 23:04 12/19/17 23:05 DC 12/19/17 23:07 10 ML Al Hydroxide/Mg Hydroxide (Maalox Susp) 30 ml STK-MED ONCE .ROUTE 12/19/17 23:04 12/19/17 23:05 DC 12/19/17 23:07 30 ML ED Course 2243: The patient was evaluated in room C11B. A complete history and physical exam was performed. 0107: I reevaluated the patient. Discussed results and discharge instructions: She verbalized understanding and agreement. The patient is ready for discharge. Medical Decision The patient is a 32 year old female with a past medical history hypothyroidism, depression, and diabetes who presents to the ED with a cc of worsening abdominal pain beginning yesterday. Differential diagnosis: Etiologies such as appendicitis, diverticulitis, PUD, biliary pathology, UTI, pancreatitis, obstruction, mesenteric ischemia, aortic pathology, infections, inflammatory bowel disease, renal colic, as well as others were entertained. Patient was seen and evaluated the bedside. Patient has had some worsening upper abdominal crepitus or pain. Patient's pain is fairly unremarkable. Patient's blood work fairly unremarkable. Patient was treated essentially for dyspepsia. Patient's pain resolved. Patient's urinalysis negative. UPT is negative. Patient was told she may try Pepcid or Zantac as well as Maalox as an outpatient. Patient has a nonsurgical abdomen and do not believe that she requires further imaging or testing at this time. She had no vomiting here. Patient was deemed suitable for outpatient follow-up and treatment. Patient was given strict follow-up, discharge, and return precautions. All questions were answered. Patient was deemed suitable for outpatient follow-up at this time. Patient agreed with the plan of care and was safely discharged home. The chart was completed utilizing [employer] Speech voice recognition software. Grammatical errors, random word insertions, pronoun errors, and incomplete sentences are an occasional consequence of this system due to software limitations, ambient noise, and hardware issues. Any formal questions or concerns about the content, text, or information contained within the body of this dictation should be directly addressed to the physician for clarification. Medication Reconcilliation Current Medication List: was personally reviewed by me Blood Pressure Screening Patient's blood pressure: Normal blood pressure Blood pressure disposition: Did not require urgent referral Impression Primary Impression: Dyspepsia Additional Impressions: Gastritis Abdominal pain Scribe Attestation The scribe's documentation has been prepared under my direction and personally reviewed by me in its entirety. I confirm that the note above accurately reflects all work, treatment, procedures, and medical decision making performed by me. Departure Information Dispostion Home / Self-Care Referrals No Doctor, Assigned (PCP) Forms Call Back Authorization, HOME CARE DOCUMENTATION FORM, IMPORTANT VISIT INFORMATION Patient Instructions ED PUD Vs Gastritis, My [facility] Additional Instructions Please return to the emergency department if you have worsening or recurrent symptoms not amenable to at-home treatment. Please call for a follow-up appointment with her primary care physician. Please take your medications as prescribed. If you have other concerns and/or complaints please feel free to also call your primary care physician's office or return the ED for further evaluation, management, and treatment. Please take a Pepcid or Zantac. Please avoid things like spicy or citrus fruits. Please try eating smaller meals. Avoid alcohol and tobacco. Take your medications as prescribed. You have been examined and treated today on an emergency basis only. This is not a substitute for, or an effort to provide, complete comprehensive medical care. It is impossible to recognize and treat all injuries or illnesses in a single emergency department visit. It is therefore important that you follow up closely with [facility], your PCP, and/or your specialist(s). Call as soon as possible for an appointment. Thank you for your time and consideration. I look forward to speaking with you again soon. Please don't hesitate to call us if you have any questions. Problem Qualifiers Additional Impressions: Gastritis Gastritis type: unspecified gastritis Chronicity: unspecified Gastritis bleeding: presence of bleeding unspecified Qualified Codes: K29.70 - Gastritis, unspecified, without bleeding Abdominal pain Abdominal location: epigastric Qualified Codes: R10.13 - Epigastric pain
[2017-12-20 01:50] VITALS: BP 117/59; PULSE 75; O2SAT 95
--- NOTE | 2017-12-20 07:19 | DIAGNOSTIC IMAGING REPORT ---
SINGLE VIEW CHEST CLINICAL HISTORY: Generalized abdominal pain. FINDINGS: An AP, portable, upright chest radiograph is compared to study dated 09/13/2017. The examination is degraded by portable technique and patient rotation. The cardiomediastinal silhouette is unremarkable. The lungs and pleural spaces are clear. No pneumothorax is seen. The bony thorax is grossly intact. IMPRESSION: No active disease in the chest. Electronically signed by: Landen Ryan M.D. 12/20/2017 7:17 AM Dictated Date/Time: 12/20/2017 7:17 AM
--- NOTE | 2017-12-20 07:24 | DIAGNOSTIC IMAGING REPORT ---
KUB CLINICAL HISTORY: Generalized abdominal pain. FINDINGS: 2 AP supine abdominal radiographs are compared to study dated 09/13/2017. There is no bowel obstruction. No evidence of intraperitoneal free air is seen. There are no abnormal abdominal calcifications. The liver appears enlarged. Phleboliths are observed in the pelvis. The bony structures appear intact. IMPRESSION: Nonobstructed abdominal bowel gas pattern. Electronically signed by: Landen Ryan M.D. 12/20/2017 7:22 AM Dictated Date/Time: 12/20/2017 7:18 AM
== END 2017-12-20 01:55 | disposition home or self-care (01) ==
LOC: C.EDB 21:17 → C.EDC 12-20 01:55
DX: R10.13 Epigastric pain (principal); K29.70 Gastritis, unspecified, without bleeding; E11.9 Type 2 diabetes mellitus without complications; E03.9 Hypothyroidism, unspecified; F32.9 Major depressive disorder, single episode, unspecified; Z83.3 Family history of diabetes mellitus; Z79.899 Other long term (current) drug therapy

== ENCOUNTER 2017-12-27 17:59 | Emergency (ER) | payer OTHER ==
[~2017-12-27] VITALS: Ht 154.9 cm; Wt 102.0 kg
[~2017-12-27 17:59] MED LIST changes: -CEPH500C PO; -SULF800T23 PO
[2017-12-27 18:00] VITALS: TEMP 36.5; Ht 154.9 cm; Wt 102.0 kg
[2017-12-27] MEDS ORDERED: SULF800T23 PO (18:22)
[2017-12-27] MEDS ORDERED: CEPH500C PO (18:22)
[2017-12-27] MEDS ORDERED: SULFAMETHOXAZOLE/TRIMETHOPRIM DS 800/160MG TAB PO ONE (18:30)
[2017-12-27] MEDS ORDERED: CEPHALEXIN MONOHYDRATE 250 MG CAP PO ONE (18:30)
[2017-12-27 18:45] VITALS: BP 125/101; PULSE 93; O2SAT 100
--- NOTE | 2017-12-27 23:59 | EMERGENCY ROOM VISIT NOTE ---
History First contact with patient: 18:09 Chief Complaint: BITE Stated Complaint: BITE ON L ARM History of Present Illness The patient is a 32 year old female who presents to the Emergency Room with complaints of pain of her left arm for the past 2-3 days. The patient states that she noticed a bump or possible spider bite of her left forearm. It increased in size, and started with drainage. The patient is diabetic and has not been taking anything [id number] for her discomfort. She rates the pain a 6/10. She has not had fever or chills. She is with full sensation of the arm. Review of Systems More than 10 systems were reviewed and otherwise negative with the exception of history of present illness. Past Medical/Surgical History Medical Problems: (1) Carpal tunnel syndrome (2) Chest pain (3) Chest pain (4) Chest pain (5) Chest pain (6) Depression (7) Diab Vilma Wo Compl, Type Ii Or Unspec Type, Not Uncntrld (8) Hypothyroidism (9) Migraine Unspecified W/O Intractable Migraine Family History Diabetes mellitus Social History Smoking Status: Never Smoker Alcohol Use: none Drug Use: none Marital Status: Housing Status: lives with significant other Occupation Status: unemployed Current/Historical Medications Scheduled Atorvastatin (Lipitor), 10 MG PO DAILY Cephalexin Monohydrate (Keflex), 500 MG PO TID Fluoxetine (Prozac), 40 MG PO QAM Gabapentin (Neurontin), 600 MG PO TID Levothyroxine Sodium (Synthroid), 50 MCG PO DAILY Mirtazapine (Mirtazapine), 45 MG PO HS Pantoprazole (Protonix), 40 MG PO QAM Quetiapine Fumarate (Seroquel), 50 MG PO HS Ranitidine Hcl (Zantac), 300 MG PO HS Sulfa/Trimethoprim (Bactrim Ds 800MG/160MG), 1 TAB PO BID Topiramate (Topamax), 200 MG PO BID Scheduled PRN Cyclobenzaprine Hcl (Flexeril), 10 MG PO HS PRN for Muscle Spasm Dicyclomine Hcl (Dicyclomine Hcl), 10 MG PO QID PRN for Abdominal Cramping Ondansetron Hcl (Zofran), 4 MG PO Q6H PRN for Nausea Physical Exam Vital Signs Date Time Temp Pulse Resp B/P (MAP) Pulse Ox O2 Delivery O2 Flow Rate FiO2 2/9/18 18:45 93 18 125/101 100 12/27/17 18:00 36.5 94 18 131/91 100 Physical Exam VITALS: Vitals are noted on the nurse's note and reviewed by myself. Vital signs stable. GENERAL: Well-developed, well-nourished, white female, who is in no acute distress and resting comfortably. Patient is cooperative with the examination. HEART: Regular rate and rhythm without murmurs gallops or rubs. LUNGS: Clear to auscultation bilaterally without wheezes, rales or rhonchi. No retractions or accessory muscle use. MUSCULOSKELETAL: On the left posterior forearm is a 3.5 cm abscess with surrounding cellulitis measuring an additional 3-4 cm circumferentially. No purulent material is available for culture. The patient is with full sensation and range of motion of the left hand and left wrist. No streaking. Medical Decision & Procedures Medications Administered Medications (Trade) Dose Ordered Sig/Nayla Route Start Time Stop Time Status Last Admin Dose Admin Cephalexin Monohydrate (Keflex Cap) 500 mg NOW ONCE PO 12/27/17 18:30 2 18:31 DC 12/27/17 18:43 500 MG Trimethoprim/ Sulfamethoxazole (Septra Ds 800/ 160MG Tab) 1 tab NOW ONCE PO 12/27/17 18:30 2 18:31 DC 12/27/17 18:43 1 TAB ED Course Physical exam and history were performed. Nursing notes, EMR, and Medication List were personally reviewed. Patient appears to have an abscess of her left forearm. This seems to have opened and drained spontaneously. There is no material for culture. Patient is diabetic and I will start her on Bactrim and Keflex. She will need to follow closely with her primary care physician. She is to see them in the next few days for recheck. She was otherwise invited back to the ER with any new, worsening, or concerning symptoms. The chart was completed utilizing [employer] Voice [employer]ognition Software. Grammatical errors, random word insertions, pronoun errors, and incomplete sentences are an occasional consequence of this system due to software limitations, ambient noise, and hardware issues. Any formal questions or concerns about the content, text, or information contained within the body of this dictation should be directly addressed to the provider for clarification. . Medical Decision Differential diagnosis: Etiologies such as cellulitis, abscess, MRSA infection, DVT, necrotizing fasciitis, dermatitis, drug eruption, as well as others were entertained.. Impression Primary Impression: Abscess of forearm, left Departure Information Dispostion Home / Self-Care Condition GOOD Prescriptions Sulfa/Trimethoprim (Bactrim Ds 800MG/160MG) Tab 1 TAB PO BID for 10 Days, #20 TAB Prov: Bhargav Edwards PA-C 12/27/17 Cephalexin Monohydrate (Keflex) 500 Mg Cap 500 MG PO TID for 10 Days, #30 CAP Prov: Bhargav Edwards PA-C 12/27/17 Forms HOME CARE DOCUMENTATION FORM, IMPORTANT VISIT INFORMATION Patient Instructions My [facility] Additional Instructions You were seen and evaluated today on an emergency basis only. This is not a substitute for, or an effort to provide, complete comprehensive medical care. It is not possible to recognize and treat all injuries or illnesses in a single emergency department visit. For this reason it is recommended that you followup with your primary care on Saturday as scheduled. Trimethoprim-Sulfamethoxazole(Bactrim DS): Take one pill twice daily for 10 days for your skin infection. All antibiotics can cause diarrhea. If this occurs and you feel worse or it does not resolve in 1-2 days follow up with your doctor or return to the Emergency Department as this could be signs of serious underlying problems. Any medication can cause an allergic reaction, stop the pills immediately and return to the ER for rash, hives, breathing difficulties, or swelling. Cephalexin(Keflex) 500mg: Take one pill 3 times daily for 10 days for your skin infection. All antibiotics can cause diarrhea. If this occurs and you feel worse or it does not resolve in 1-2 days follow up with your doctor or return to the Emergency Department as this could be signs of serious underlying problems. Any medication can cause an allergic reaction, stop the pills immediately and return to the ER for rash, hives, breathing difficulties, or swelling. You are welcome to return to the emergency department anytime with new, worsening, or concerning symptoms.
== END 2017-12-27 18:45 | disposition home or self-care (01) ==
LOC: C.EDB 18:00 → C.EDD 18:45
DX: L02.414 Cutaneous abscess of left upper limb (principal); E11.9 Type 2 diabetes mellitus without complications; E03.9 Hypothyroidism, unspecified; F32.9 Major depressive disorder, single episode, unspecified; Z83.3 Family history of diabetes mellitus

== ENCOUNTER → 2017-12-27 | Outpatient (CLI) | payer OTHER ==
[~2017-12-27] MED LIST changes: +CEPH500C PO; +GABA600T PO; -MIRT15TA PO; +MIRT45TA3 PO; -SUCR1TAB29 PO; +SULF800T23 PO; +TOPI200T20 PO
== END | disposition home or self-care (01) ==
LOC: C.LABSPEC 11:23
PROVIDERS: ATTEND Physician Assistant
DX: N93.0 Postcoital and contact bleeding (principal); Z11.8 Encounter for screening for other infectious and parasitic diseases; Z11.3 Encounter for screening for infections with a predominantly sexual mode of transmission

== ENCOUNTER → 2018-01-09 | Outpatient (CLI) | payer OTHER ==
[~2018-01-09] MED LIST changes: -BENZ1CAP90 PO
== END | disposition home or self-care (01) ==
LOC: C.LABSPEC 13:42
PROVIDERS: ATTEND Physician Assistant
DX: N92.1 Excessive and frequent menstruation with irregular cycle (principal)

== ENCOUNTER → 2018-02-25 | Outpatient (CLI) | payer OTHER ==
--- NOTE | 2018-02-26 05:52 | PAP/PSG TECHNICIAN REPORT ---
[facility] News Clerk Polysomnogram Report Study name: None Report date: 02/26/2018 Study date: 02/25/2018 Referring Physician: CONSTANCE FRANCO PA-C Name: NICKOLAS BROCK Interpreting Physician: Zoran Miner M.D. Date of : 1985 News Clerk: Annabella Mckeon RPSFLORENCIO. Sex: Female Age: 33 StudyType: PSG Weight: 226 lbs Height: 33 years, Height 5' 1" Neck Circum:16inches BMI: 42.7 Medications: [id number], Prozac 20mg, Seroquel 100mg, Remeron 15mg, Hydroxyzine 50mg, Neurontin 600mg Patient History Study started on room air with no ETCO2 monitoring in room #8. 33 yr old female here tonight for a diagnostic psg. She complains of EDS, headaches, trouble falling asleep and frequent awakenings. She has ADHD, Autism Spectrum Disorder, hypothyroidism and reflux. Her ESS=9/24. Neck circ=16inches. Parameters Monitored NPSG: E1-M2, E2-M1, Fp1-M2, Fp2-M1, F3-M2, F4-M2, F4-M1, C3-M2, C4-M2, C4-M1, O1-M2, O2-M2, O2-M1, T3-M2, T4-M1, P3-M2, P4-M1, CHIN1, CHIN2, HR, EKG, Legs, PFLOW, SNOR, FLOW, CFLOW, Tidal Volume, THOR, ABDO, SpO2, PLTH, CPRESS, ETCO2 Wave, ETCO2, pH Sleep Architecture Sleep Stages Time at Lights Off 10:04:14 PM STAGES Time (min.) TST (%) Time at Lights On 5:29:44 AM Wake 23.5 -- Total Recording Time (TRT) 445.00 min. N1 15.0 4 Total Sleep Period (TSP) 428.5 min. N2 241.0 57 Total Sleep Time (TST) 421.5min. N3 120.5 29 Awake Time 23.5 min. REM 45.0 11 Wake after Sleep Onset 7.0 min. Sleep Efficiency (SE) 95 % Sleep Onset Latency (ANGELIKA) 17.0 min. Number of Stage 1 Shifts None Awakenings 9 Stage Changes 60 Number of REM periods 6 REM 45.0 11 REM Latency 189.5 min. NREM 376.5 89 Body Position Analysis Supine Right Left Side Prone Vertical Total Sleep Time (min.) 318.8 0.0 108.9 108.94 0.0 0.0 Total Sleep Time (%) 74% 0% 26% 26 0% N/A% Total Sleep Time REM (min.) 14.5 0.0 30.5 None 0.0 0.0 Total Sleep Time NREM (min.) 298.1 0.0 78.4 None 0.0 0.0 Intermittent Wake (min.) 6.2 0.0 17.3 None 0.0 0.0 Total Sleep Period (%) 74% None None None None None Arousals Myoclonus (PLM) * Events Count Index Events Count Index Spontaneous 9 1 Events Awake (PLMW) 34 86.8 Respiratory 1 0.1 Events Asleep w/ Arousal (PLMA) 18 2.6 PLM 17 3 Events Asleep w/o Arousal (PLMS) 143 20.4 Snoring 6 1 Total Asleep 161 22.9 Total 33 5 Total 195 26 Respiratory Analysis * CA OA MA CH H RERA Total Count 0 0 0 0 4 0 4 Index 0.0 0.0 0.0 0 0.6 0 0.6 Mean Duration 0.0 0.0 0.0 0.00 15.4 0.0 15.4 Longest Duration 0.0 0.0 0.0 0.00 0.0 0.0 17.2 Respiratory Event Summary Total Supine ~Supine Right Left Prone REM NREM Apneas Count 0 0 0 N/A 0 N/A 0 0 Index 0.0 0 0 N/A 0.0 N/A 0 0 Hypopneas (4% Desat) Count 4 3 1 N/A 1 N/A 0 4 Index 0.6 0.6 1 N/A 0.6 N/A 0.0 0.6 Apneas & All Hypopneas Count 4 3 1 N/A 1 N/A 0 4 Index 0.6 1 1 N/A 1 N/A 0.0 0.6 Respiratory Events (Recreation Worker+All Hyp+RERA) Count 4 3 1 N/A 1 N/A 0 4 Index 0.6 1 1 N/A 0.6 N/A 0.0 0.6 Respiratory Related Arousal Count 1 3 1 N/A 1 N/A 0 1 Index 0.1 0 1 N/A 1 N/A 0 0 Snoring Analysis Supine Right Left Prone REM NREM Total Snore duration 29.9 min Snores count 1,165 N/A 201 N/A 28 1,338 1,366 Snore mean duration 1.3 Sec Snores index 224 N/A 111 N/A 37.3 213.2 194.4 TST with snoring (%) 7.1% Desaturation Event Summary: Minimum %SpO2 Event Count Mean/Min/Max Duration(sec.) Desaturation Index % Time In Bed > 90 36 14.7 / 4.8 / 54.3 5.4 92.6 86 - 90 2 6.5 / 5.0 / 8.0 3.9 7.1 81 - 85 2 10.1 / 7.8 / 12.5 140.5 0.2 76 - 80 0 N/A 0.0 0.0 71 - 75 1 7.8 / 7.8 / 7.8 464.5 0.0 66 - 70 0 N/A 0.0 0.0 61 - 65 0 N/A 0.0 0.0 56 - 60 0 N/A 0.0 0.0 51 - 55 0 N/A 0.0 0.0 < 50 0 N/A 0.0 0.0 Total REM NREM Awake <50% 0.0 min. 0.0 min. 0.0 min. 0.0 min. 51 - 60% 0.0 min. 0.0 min. 0.0 min. 0.0 min. 61 - 70% 0.0 min. 0.0 min. 0.0 min. 0.0 min. 71 - 80% 0.2 min. 0.0 min. 0.1 min. 0.0 min. 81 - 90% 31.5 min. 1.2 min. 30.0 min. 0.3 min. 91 - 100% 398.3 min. 43.5 min. 335.1 min. 19.7 min. Average 93 94 93 95 Minimum SpO2 75 85 75 77 Desaturation Event Index 5.3 18.7 3.5 7.7 # Desat. Events below 89% 15 3 11 1 Time(%) with Saturation below 89% 0.5 0.1 0.4 0.0 Time(min.) with Saturation below 89% 2.3 0.6 1.5 0.2 Time (mins) REM (mins) NREM (mins) % of TST SpO2 Below 90% 20 4 N16 0.7 SpO2 Below 88% 3 0 0 0 Heart Rate Analysis Min (bpm) Max (bpm) Average (bpm) Awake 66 173 81 NREM 38 196 88 REM 70 102 84 Overall 38 196 87 Supplemental O2 Values Minimum O2 level: None Value Start Time End Time News Clerk Comments Ms. Brock slept in the left and supine positions. No cardiac arrhythmia noted. Some leg movements were noted. No bruxism noted. Snoring was noted and scored as a 3 on a scale of 1 through 5. (0=no snoring, 5=snoring loud enough to be heard through a closed door or down the [address]ir[address] way) She did not use the restroom during the night. She stated that she slept about the same as when at home. The final report will be interpreted and signed by a sleep physician. The completed physician report will then be placed in the patient medical record. Therapy (cm H2O) 0 TIB (min.) 445.0 TST (min.) 421.5 Sleep Onset (min.) 17.0 REM Onset From Sleep (min.) 189.5 Sleep Efficiency % 95 Wakefulness (%) 5 Wakefulness (min.) 23.5 NREM 1 (%) 4 NREM 1 (min.) 15.0 NREM 2 (%) 57 NREM 2 (min.) 241.0 NREM 3 (%) 29 NREM 3 (min.) 120.5 REM (%) 11 REM (min.) 45.0 # Arousals 33 Arousal Index 5 # Snore 1,366 Snore Index 194.4 AHI 0.6 AHI Supine 1 AHI Non-Supine 1 NREM AHI 0.6 REM AHI 0.0 RDI 0.6 # Obstructive Apnea 0 # Central Apnea 0 # Mixed Apnea 0 # Hypopneas 4 RERAs 0 Total Respiratory Events 6 Time Below SpO2 89% (min.) 2.1 Mean NREM SpO2 (%) 93 Mean REM SpO2 (%) 94 Mean Sleep SpO2 (%) 93 Min NREM SpO2 (%) 75 Min REM SpO2 (%) 85 Position Supine (min.) 318.8 Position Non-supine (min.) 108.9 LM Index Sleep 22.9 LM Index NREM 23.4 LM Index REM 18.7 Mean Heart Rate (bpm) 87 Min Heart Rate (bpm) 38
--- NOTE | 2018-02-28 07:57 | POLYSOMNOGRAPH REPORT ---
CLINICAL DATA: A 33-year-old female with BMI of 42.7 referred by Rose Meza PA-C for complaints of excessive daytime sleepiness, headaches, trouble falling asleep, and frequent awakenings. She does have ADHD, autism spectrum disorder, and reflux. SLEEP ARCHITECTURE: Total sleep period was 428.5 minutes. Total sleep time was 421.5 minutes divided between 376.5 minutes of non-REM sleep and 45 minutes of REM sleep. Sleep latency was 17 minutes. REM latency was slightly prolonged to189.5 minutes. Sleep efficiency was 95%. Wake after sleep onset was 7 minutes. Sleep consisted of stage N1 4%, stage N2 57%, stage N3 29%, and REM 11%. AROUSAL DATA: 33 arousals were recorded for an index of 5 per hour. PLM DATA: Mildly elevated limb movements during sleep were noted. There were 161 limb movements during sleep noted for an index of 22.9 per hour with an arousal index of 2.6 per hour. RESPIRATORY DATA: There was no evidence of clinically significant sleep apnea seen. The AHI was 0.6. There were 4 hypopneic episodes with a mean duration of 15.4 seconds. OXIMETRY DATA: No sustained hypoxemia was seen. Oxygen olga was 75% during non-REM sleep. Mean saturation was 93%. Time below 88% was 3 minutes. EKG: Heart rates ranged from 38-102 beats per minute. No arrhythmias were noted. DOCTOR OF PODIATRIC MEDICINE'S COMMENTS: The patient slept in the left and supine position. Snoring was moderate, rated 3 on a scale of 1-5. IMPRESSION: No evidence of clinically significant sleep apnea/hypopnea or significant nocturnal hypoxemia. The patient did have mildly elevated limb movements during sleep, possibly consistent with periodic limb movement disorder. RECOMMENDATIONS: The patient should continue to practice good sleep hygiene. Weight loss may be of benefit. If she has symptoms of restless legs syndrome/PLMD, evaluation for a potential reversible causes could be considered. Clinical correlation is needed. KIERA
== END | disposition home or self-care (01) ==
LOC: C.NEUR 20:00
PROVIDERS: ATTEND Physician Assistant
DX: G47.30 Sleep apnea, unspecified (principal)

== ENCOUNTER → 2018-07-10 | Outpatient (CLI) | payer OTHER ==
[2018-07-10 12:43] LABS: HEMOGLOBIN A1C 5.7 % (4.5-5.6)
[2018-07-10 14:07] LABS: ALBUMIN 3.6 gm/dl (3.4-5.0); ALKALINE PHOSPHATASE 101 U/L (45-117); ALT/SGPT 22 U/L (12-78); AST/SGOT 12 U/L (15-37); BLOOD UREA NITROGEN 15 mg/dl (7-18); CALCIUM 8.6 mg/dl (8.5-10.1); CARBON DIOXIDE 20 mmol/L (21-32); CHOLESTEROL 119 mg/dl (0-200); CREATININE 0.67 mg/dl (0.60-1.20); GLUCOSE 98 mg/dl (70-99); LDL CHOLESTEROL CALCULATED 56 mg/dl; POTASSIUM 3.6 mmol/L (3.5-5.1); SODIUM 140 mmol/L (136-145); TOTAL PROTEIN 7.5 gm/dl (6.4-8.2)
== END | disposition home or self-care (01) ==
LOC: C.LABBFT 10:15
PROVIDERS: ATTEND Physician Assistant Medical
DX: E03.9 Hypothyroidism, unspecified (principal); E11.9 Type 2 diabetes mellitus without complications; E78.5 Hyperlipidemia, unspecified